=== PATIENT | male | born 1965 | race Caucasian/White ===

== ENCOUNTER 2024-09-11 14:06 | Inpatient (IN) | payer BC, SELFPAY ==
[2024-09-11] VITALS (8 sets, daily range): BP systolic 154–188; BP diastolic 89–108; BMI 26.5
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
[2024-09-11 10:56] LABS: % Basophils 0.9 % (0-2); % Eosinophils 2.9 % (0-6); % Immature Granulocytes 0.4 % (0-0.5); % Lymphocytes 14.6 % (20.5-51.1); % Monocytes 10.9 % (1.7-9.3); % Neutrophils 70.3 % (42.2-75.2); Absolute Basophils 0.1 10^3/uL (0-0.2); Absolute Eosinophils 0.2 10^3/uL (0-0.7); Absolute Lymphocytes 0.8 10^3/uL (1.2-3.4); Absolute Monocytes 0.6 10^3/uL (0.1-0.6); Absolute Neutrophils 3.9 10^3/uL (1.4-6.5); Hematocrit 29.7 % (39.0-52.0); Hemoglobin 10.7 g/dL (13.0-18.0); Mean Corpuscular Hgb 30.1 pg (27.0-31.0); Mean Corpuscular Volume 83.7 fL (80.0-94.0); Mean Platelet Volume 8.7 fL (7.4-10.4); Nucleated Red Blood Cells % 0 % (-); Platelet Count 199 10^3/uL (130-400); Red Blood Cell Count 3.55 10^6/uL (4.70-6.10); Red Cell Dist. Width 14.7 % (11.5-14.5); White Blood Cell Count 5.5 10^3/uL (4.8-10.8)
[2024-09-11 11:05] LABS: INR 1.09; PT 13.9 Sec (11.4-14.6)
[2024-09-11 11:27] LABS: ALT (SGPT) 17 U/L (0-50); AST (SGOT) 26 U/L (17-59); Albumin 3.8 g/dl (3.5-5.0); Alkaline Phosphatase 128 U/L (38-126); Blood Urea Nitrogen 34 mg/dl (9-20); Calcium 8.8 mg/dl (8.4-10.2); Carbon Dioxide 22 mmol/L (22-30); Chloride 95 mmol/L (98-107); Estimated Creatinine Clearance 22 ml/min; Glucose 90 mg/dl (70-99); Magnesium 1.8 mg/dl (1.6-2.3); Phosphorus 4.4 mg/dl (2.5-4.5); Potassium 4.2 mmol/L (3.5-5.1); Sodium 130 mmol/L (135-145); Total Bilirubin 0.7 mg/dl (0.2-1.3); Total Protein 7.1 g/dl (6.3-8.2); eGFR 17.14
[2024-09-11 11:30] LABS: Alcohol None Detected
[2024-09-11 12:42] LABS: Ammonia < 9 umol/L (9-30)
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
--- NOTE | 2024-09-11 13:20 | PHANOTE ---
Med Rec Note:
Pt states he takes 1 medications, but does not know the name of the medication. Dr Hayden shows Nifedipine ER 30mg filled 08/22/24. Pt unsure of medication, even when name is given. Home med list left unconfirmed.
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
--- NOTE | 2024-09-11 15:16 | PTCARENOTE ---
patient's BP noted to be high, house provider notified via TT
[2024-09-11 15:17] LABS: Urine Albumin 2+ (Neg - Trace); Urine Bilirubin Negative (Negative); Urine Character Clear (Clear); Urine Color Yellow; Urine Glucose Negative (Negative); Urine Ketone Negative (Negative); Urine Leukocyte Negative (Negative); Urine Nitrite Negative (Negative); Urine Occult Blood Negative (Negative); Urine Urobilinogen Negative (Neg - 1+)
[2024-09-11] MEDS: APRESOLINE 10 MG IV (15:21)
--- NOTE | 2024-09-11 15:25 | PTCARENOTE ---
please refer to MAR for PRN BP meds
[2024-09-11 15:32] LABS: Amphetamines Negative (Negative); Barbiturates Negative (Negative); Benzodiazepines Negative (Negative); Buprenorphine Negative (Negative); Cocaine Negative (Negative); Marijuana Negative (Negative); Methadone Negative (Negative); Methamphetamines Negative (Negative); Opiates Negative (Negative); Phencyclidine Negative (Negative); Tricyclic Antidepressants Negative (Negative)
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
[2024-09-11 15:58] LABS: Urine Squamous Cell 0-2 /LPF (Few); Urine White Cell 0-2 /HPF (0-5)
[2024-09-11] MEDS: PLAVIX 75 MG PO (17:00)
[2024-09-11] MEDS: LOW STRENGTH ASPIRIN 81 MG PO (17:00)
[2024-09-11] MEDS: TRANDATE 52 MG IV (17:52)
[2024-09-11] MEDS: PROCARDIA XL (EXTENDED RELEASE) 30 MG PO (19:43)
[2024-09-11] MEDS: HEPARIN 5000 UNITS SC (20:31)
[2024-09-11] MEDS: VITAMIN B1 100 MG PO (20:33)
[2024-09-12 02:46] LABS: Vitamin B12 449 pg/ml (239-931)
[2024-09-12 06:00] VITALS: BMI 25.8
[2024-09-12 06:54] LABS: Hematocrit 30.3 % (39.0-52.0); Hemoglobin 10.8 g/dL (13.0-18.0); Mean Corp Hgb Conc. 35.6 g/dL (33.0-37.0); Mean Corpuscular Hgb 30.2 pg (27.0-31.0); Mean Corpuscular Volume 84.6 fL (80.0-94.0); Platelet Count 285 10^3/uL (130-400); Red Blood Cell Count 3.58 10^6/uL (4.70-6.10); Red Cell Dist. Width 14.9 % (11.5-14.5); White Blood Cell Count 6.2 10^3/uL (4.8-10.8)
[2024-09-12 07:16] LABS: Blood Urea Nitrogen 38 mg/dl (9-20); Calcium 9.1 mg/dl (8.4-10.2); Carbon Dioxide 19 mmol/L (22-30); Chloride 96 mmol/L (98-107); Estimated Creatinine Clearance 21 ml/min; Glucose 88 mg/dl (70-99); Potassium 4.1 mmol/L (3.5-5.1); Sodium 130 mmol/L (135-145); eGFR 16.15
[2024-09-12 07:25] VITALS: BP 166/96
[2024-09-12] MEDS: PROCARDIA XL (EXTENDED RELEASE) 30 MG PO (08:29)
[2024-09-12] MEDS: LOW STRENGTH ASPIRIN 81 MG PO (08:29)
[2024-09-12] MEDS: HEPARIN SC ×2 (08:29→23:01)
[2024-09-12] MEDS: PLAVIX 75 MG PO (08:30)
[2024-09-12] MEDS: NEPHROCAP 1 CAPSULE PO (08:30)
[2024-09-12] MEDS: VITAMIN B1 100 MG PO ×2 (08:30→23:01)
--- NOTE | 2024-09-12 09:01 | PTCARENOTE ---
pt wakes to name. oriented to self knows its morning and that he is in a hospital does not know name. states he does not take medication he is holistic. still agreeable to take po meds not heparin injection able to ambulate to bathroom self. bed
alarm on for safety. CW HD cath in place.
--- NOTE | 2024-09-12 10:25 | W.PN.NEURO.1 ---
Today's Communication / Plan
-
Obtain records from patient's usual care center
From use of medications for memory stabilization
Consider as outpatient evaluation for possible normal pressure hydrocephalus dependent on test results
Provide Thiamine
Neuro Assessment/Plan
Assessment
Patient with prior history of dementia presumed to be secondary to metabolic disturbance presenting with lack of recall
CT of head demonstrates significant expansion of ventricles with radiology suggested severe white matter disease. Workup for metabolic disturbance producing symptomatology has been unremarkable
Plan
Obtain records from patient's usual care center
From use of medications for memory stabilization
Consider as outpatient evaluation for possible normal pressure hydrocephalus dependent on test results
Provide Thiamine
Will follow as needed.
Subjective/Objective
Subjective Data
Date of Service: September 12, 2024
Patient unable to account for hospitalization
Pt has had operation on heart 'to close hole'
Hx of stroke in 2022
Pt is on dialysis
Denies dysphagia, headache
Unknown hospital location, month and date
pronator drift (-)
Objective Data
Vital Signs
Temp Pulse Resp BP Pulse Ox
36.8 C 68 16 166/96 98
09/12/24 07:25 09/12/24 08:29 09/12/24 07:25 09/12/24 08:29 09/12/24 07:25
Lab Results
09/12/24 06:13
09/12/24 06:13
PT 13.9 Sec (11.4-14.6) 09/11/24 10:46
INR 1.09 09/11/24 10:46
Sodium 130 mmol/L (135-145) L 09/12/24 06:13
Potassium 4.1 mmol/L (3.5-5.1) 09/12/24 06:13
BUN 38 mg/dl (9-20) H 09/12/24 06:13
Glucose 88 mg/dl (70-99) 09/12/24 06:13
Calcium 9.1 mg/dl (8.4-10.2) 09/12/24 06:13
Phosphorus 4.4 mg/dl (2.5-4.5) 09/11/24 10:46
Vitamin B12 Cancelled 09/11/24 19:45
Ur Buprenorphine Negative (Negative) 09/11/24 14:54
Patient Allergies
bee venom protein (honey bee) Allergy (Verified 09/11/24 10:22)
Unknown
Review of Systems
-
Unable to obtain full review of systems at this time due to: Dementia
History Source: Patient
All other systems: Reviewed and negative
Physical Exam
-
General: No Apparent Distress and Appears Stated Age
Eyes: Round OU, Plato Conjunctivae and No Ptosis
HEENT: Anicteric and Moist Mucous Membranes
Neck: Full Range of Motion
Respiratory: No Dyspnea
Cardiac: No JVD
GI: Non-tender
Skin: Unremarkable
Extremities: No Clubbing, No Cyanosis and No Edema
Psych: Intact Judgement/Insight
Extended Neurological Exam
Mood & Affect: Other (Easily irritable)
Attention Span & Concentration: Awake, Alert, Interactive and No Difficulty with 2 Step Request
Memory: Reduced (Location, month, year) and Unable to Recall Personal History
Tremor: Hand Tremor Absent and Head Tremor Absent
Speech: Quality Unremarkable and Quantity Unremarkable
Cranial Nerve II: Left Eye: Pupillary Size Unremarkable and Visual Melissa Grossly Intact
Cranial Nerve II: Right Eye: Pupillary Size Unremarkable and Visual Melissa Grossly Intact
Cranial Nerves III, IV, : Extraocular Movement: Grossly Intact
Cranial Nerve VII: Facial Symmetry: Normal Facial Symmetry
Cranial Nerve VIII: Hearing: Unremarkable Hearing to Normal Conversational Volume
Cranial Nerve XI: Shoulder Shrug: Unremarkable
Muscle Bulk & Tone: Bulk Unremarkable and Tone Unremarkable
Pronator Drift: No Drift in Upper Extremities
Coordination: [id number] Testing Unremarkable
Data Reviewed
-
CT Head: Report Reviewed and Image Reviewed
Labs: Report Reviewed
Reviewed with: Physician and Patient
Old Records: Summarized
Past History
Past History
ED Past Medical History: CVA, Renal failure and Other (Dementia)
Medications
-
Medications:
Generic Name Dose Route Start Last Admin
Trade Name Freq PRN Reason Stop Dose Admin
Acetaminophen 650 mg 09/11/24 15:49
Acetaminophen 325 Mg Tablet PO 10/09/24 15:48
Q4HPRN PRN
mild pain/SHIRLEY/temp> 100.4F
Aspirin 81 mg 09/11/24 15:49 09/12/24 08:29
Aspirin 81 Mg Chewable Tablet PO 10/09/24 15:48 81 mg
DAILY SHARON Administration
Bisacodyl 10 mg 09/11/24 15:49
Bisacodyl 10 Mg Rectal Suppository RECTAL 10/09/24 15:48
[id number] PRN
constipation
Clopidogrel Bisulfate 75 mg 09/11/24 15:49 09/12/24 08:30
Clopidogrel 75 Mg Tablet PO 10/09/24 15:48 75 mg
DAILY SHARON Administration
Heparin Sodium 5,000 units 09/11/24 20:00 09/12/24 08:29
Heparin 5,000 Units/Ml 1 Ml Vial SC 10/09/24 19:59 Not Given
Q12 SHARON
Labetalol HCl 10 mg/ Sodium 52 mls @ 200 mls/hr 09/11/24 16:14 09/11/24 17:52
Chloride IV 10/09/24 16:13 52 mls
Q6HPRN PRN Administration
SBP>160,DBP>90 (HYPERTENSION)
Mannitol 12.5 grams 09/12/24 08:00
Mannitol 25% (12.5 Grams/50 Ml) Vial IV 09/12/24 23:59
HD-Q1HPRN PRN
sbp less then 100
Nifedipine 30 mg 09/12/24 08:00 09/12/24 08:29
Nifedipine 30 Mg Extended Release Tablet PO 10/10/24 07:59 30 mg
DAILY SHARON Administration
Polyethylene Glycol 17 grams 09/11/24 15:49
Polyethylene Glycol Powder 17 Grams Packet PO 10/09/24 15:48
DAILYPRN PRN
constipation
Senna/Docusate Sodium 1 tablet 09/11/24 15:49
Docusate W/Senna (Bailey-Colace) Tablet PO 10/09/24 15:48
BIDPRN PRN
constipation
Sodium Chloride 10 ml 09/12/24 08:00
Sodium Chloride (4 Meq/Ml) 30 Ml Vial *For Hemodialysis* IV 09/12/24 23:59
HD-Q1HPRN PRN
cramps
Sodium Chloride 0 flush 09/11/24 15:00
Sodium Chloride 0.9% (Flush) Syringe IV 10/09/24 14:59
PER PROTOCOL SHARON
Thiamine HCl 100 mg 09/11/24 20:00 09/12/24 08:30
Thiamine 100 Mg Tablet PO 10/09/24 19:59 100 mg
BID SHARON Administration
Vitamin B Complex/Vit C/Folic Acid 1 capsule 09/12/24 08:00 09/12/24 08:30
Renal Cap (Nephrocap) Capsule PO 10/10/24 07:59 1 capsule
DAILY SHARON Administration
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
--- NOTE | 2024-09-12 13:38 | EEG.RPT ---
Electroencephalogram Report
Recording
Date of EE09/12/24
Type of EEG: Routine
Length of EEG recordin minutes
Done with Video Recording: Yes
Patient Status: Inpatient
Recording Conditions: Awake and Drowsy
Hyperventilation Performed: No
Photic Stimulation Performed: Yes
Report
LESS THAN 1 HOUR EEG INTERPRETATION:
Unremarkable EEG for age
CLINICAL CORRELATION:
A normal EEG does not rule out a diagnosis of epilepsy. If clinical suspicion for seizure persists, a prolonged recording may be warranted.
Clinical correlation is advised.
METHODS:
A 21 channel digitized electroencephalogram (EEG) was performed using the 10/20 international system of electrode placement and one-lead of ECG recorded. The [facility] quantitative EEG system was utilized.
ELECTROENCEPHALOGRAPHER IMPRESSION(S):
Quality of study
Good
Background
There was an unremarkable anterior-posterior voltage gradient of alpha frequency.
With eye opening the background activity changed to a low voltage mixture of frequencies.
There were no significant asymmetries of background activity noted.
Sleep
Drowsiness present
Hyperventilation
No activation
Photic Stimulation
No activation
ECG
Normal sinus rhythm
[2024-09-12 15:25] VITALS: BP 183/97
[2024-09-12 16:09] VITALS: BP 162/92
[2024-09-12] MEDS: TRANDATE 52 MG IV (16:57)
--- NOTE | 2024-09-12 18:32 | W.PN.NEPH.HD ---
Assessment
-
pt seen during HD
vitals stable
UF as tolerates
CVC functions well
Trying to find his home unit , pt does not know the name
neuro w/u in progress for AMS
Progress Note - Hemodialysis
-
Date of Service: September 12, 2024
Duration: 30 minutes and 3 hours
Potassium Bath: 2
Calcium Bath: 2.5
Opti-Dialyzer: 160
Ultrafiltration: Other (2-2.5kg)
Blood Flow: 400
Dialysate Flow: 600
Heparin: no
EPO: 6000
[2024-09-12] MEDS: RETACRIT 6000 UNITS IV (19:44)
[2024-09-12] MEDS: HEPARIN 4000 UNITS INTRACATH (21:35)
[2024-09-12 23:08] VITALS: BP 151/88
[2024-09-13 06:00] VITALS: BMI 25.1
[2024-09-13 07:33] LABS: Blood Urea Nitrogen 19 mg/dl (9-20); Calcium 8.5 mg/dl (8.4-10.2); Carbon Dioxide 27 mmol/L (22-30); Chloride 96 mmol/L (98-107); Estimated Creatinine Clearance 30 ml/min; Glucose 83 mg/dl (70-99); Potassium 3.8 mmol/L (3.5-5.1); Sodium 134 mmol/L (135-145); eGFR 25.52
[2024-09-13 07:39] VITALS: BP 166/90
[2024-09-13 08:05] LABS: Hepatitis B Surface Antigen Negative (Negative)
[2024-09-13] MEDS: HEPARIN 5000 UNITS SC ×2 (08:07→20:33)
[2024-09-13] MEDS: PROCARDIA XL (EXTENDED RELEASE) 30 MG PO (08:09)
[2024-09-13] MEDS: NEPHROCAP 1 CAPSULE PO (08:09)
[2024-09-13] MEDS: VITAMIN B1 100 MG PO ×2 (08:09→20:34)
[2024-09-13] MEDS: PLAVIX 75 MG PO (08:09)
[2024-09-13] MEDS: LOW STRENGTH ASPIRIN 81 MG PO (08:09)
[2024-09-13 08:11] LABS: Hemoglobin 10.1 g/dL (13.0-18.0); Mean Corp Hgb Conc. 36.1 g/dL (33.0-37.0); Mean Corpuscular Hgb 31.3 pg (27.0-31.0); Mean Corpuscular Volume 86.7 fL (80.0-94.0); Mean Platelet Volume 9.2 fL (7.4-10.4); Platelet Count 214 10^3/uL (130-400); Red Blood Cell Count 3.23 10^6/uL (4.70-6.10); Red Cell Dist. Width 15.1 % (11.5-14.5); White Blood Cell Count 4.4 10^3/uL (4.8-10.8)
[2024-09-13 08:23] LABS: Hepatitis B Core Ab, Total Negative (Negative); Hepatitis B Surface Antibody Negative; Hepatitis C Antibody Negative (Negative)
--- NOTE | 2024-09-13 10:30 | PTCARENOTE ---
Talked to Everardo at Dialysis unit in [place] at [phone]. Per Everardo
When pt gets discharged call the Dialysis unit and let them know.
[2024-09-13 11:02] VITALS: BP 150/88
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
--- NOTE | 2024-09-13 11:42 | PN.CDI ---
CDI
- -
CDI:
Physician Documentation Request
Admit Date: 09/11/24 14:06
Dear Doctor Lebron,
Please review the following and provide your response in the progress notes.
Clinical Indicators:
- Patient admit with acute metabolic encephalopathy
- Documented systolic BP 170-180's
- IV Hydralazine
- IV Labetalol x 2
- 09/13 PN 'Essential Hypertension'
Selected Entries
09/11/24
15:12 09/11/24
16:52 09/12/24
15:25
Blood pressure 184/108 188/102 183/97
09/12/24
23:08 09/13/24
07:39 09/13/24
08:09
Blood pressure 151/88 166/90 166/90
Clarify which, if any of the following, is a more accurate diagnosis reflecting the type and acuity of the documented hypertension:
Essential primary hypertension only
Hypertensive Urgency - B/P is severely elevated (systolic > or = to 180 or diastolic > or = to 110) but there is no associated organ damage. Symptoms may include: headache, shortness of breath, nosebleeds, severe anxiety. Treatment usually consists
of addition to or adjusting of oral medications and does not generally necessitate hospitalization.
Hypertensive Emergency - B/P is severely elevated (systolic > or = to 180 or diastolic > or = to 110) but can occur at lower levels especially in patients who did not previously have high B/P. There is usually associated organ damage. Symptoms may
include: memory loss, LOC, CVA, RI, angina, renal failure, pulmonary edema. Generally requires more aggressive treatment and a hospitalization.
Hypertensive Crisis - an acute elevation in B/P that can lead to organ damage. Broad term that is further differentiated to include urgency or emergency based on presence of organ damage.
Other (please specify)
Use of terms such as suspected, likely, concern for, or probable (associated with a specific diagnosis that is being evaluated, monitored, or treated as if it exists) are acceptable and can be coded in the inpatient setting, when documented at the
time of discharge.
Thank you,
Jorge Luis Meyer RN
CDI Specialist
Please use your independent medical judgment in providing your response.
[2024-09-13 12:30] VITALS: BP 176/102; PULSE 82; O2SAT 98
[2024-09-13] MEDS: KEPPRA 500 MG PO ×2 (12:59→20:34)
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
--- NOTE | 2024-09-13 15:14 | W.PN.NEPH.PH ---
Addendum entered and electronically signed by Martine Cohn MD 09/13/24 18:10:
pt is generally is TTS schedule so next HD is on
Original Note:
Today's Communication / Plan
-
HD tomorrow
Assessment/Plan
-
Impression:
ESRD MWF
Confusion with apparent history of recent CVA
CT scan notable for chronic lacunar infarcts severe white matter leukoaraiosis/mild to moderate cerebellar and cerebral volume loss
Hyponatremia
Hypertension
Anemia
Plan:
HD tomorrow
BP mildly elevated, may need uptitration of CCB
cont other meds same -coreg, hydralazine
renal diet and FR
monitor cr pre HD, residual UOP
-
-
Date of Service: September 13, 2024
CC / HPI / ROS
-
Chief Complaint:
JESSICA vs ESRD-HD dependant
History of Present Illness:
tolerated HD yesterday
BP mildly high
no fever
Review of Systems:
no CP or sob
feels well
mild confusion
Labs
-
Labs:
WBC 4.4 10^3/uL (4.8-10.8) L 09/13/24 06:02
RBC 3.23 10^6/uL (4.70-6.10) L 09/13/24 06:02
Hgb 10.1 g/dL (13.0-18.0) L 09/13/24 06:02
Hct 28.0 % (39.0-52.0) L 09/13/24 06:02
Plt Count 214 10^3/uL (130-400) D 09/13/24 06:02
Sodium 134 mmol/L (135-145) L 09/13/24 06:02
Potassium 3.8 mmol/L (3.5-5.1) 09/13/24 06:02
Chloride 96 mmol/L (98-107) L 09/13/24 06:02
Carbon Dioxide 27 mmol/L (22-30) 09/13/24 06:02
BUN 19 mg/dl (9-20) 09/13/24 06:02
Creatinine 2.8 mg/dL (0.7-1.3) H 09/13/24 06:02
eGFR 25.52 09/13/24 06:02
Glucose 83 mg/dl (70-99) 09/13/24 06:02
Calcium 8.5 mg/dl (8.4-10.2) 09/13/24 06:02
Phosphorus 4.4 mg/dl (2.5-4.5) 09/11/24 10:46
Albumin 3.8 g/dl (3.5-5.0) 09/11/24 10:46
Physical Exam
-
Vital Signs:
Vital Signs
Temp Pulse Resp BP Pulse Ox
98.6 F 72 17 150/88 98
09/13/24 07:39 09/13/24 11:02 09/13/24 07:39 09/13/24 11:02 09/13/24 09:47
Cardiovascular:: Regular rate and rhythm
Respiratory:: Bilateral: CTA
Lung Excursion:: Normal
Abdomen:: Nontender and Soft
Extremity Edema:: None: Bilateral:
Rodriguez Catheter: No
[2024-09-13 15:33] VITALS: BP 142/84
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
[2024-09-13] MEDS: APRESOLINE 100 MG PO ×2 (16:26→22:22)
[2024-09-13] MEDS: COREG 12.5 MG PO (20:32)
[2024-09-13 22:54] VITALS: BP 146/85
[2024-09-14 05:27] VITALS: BMI 25.6
[2024-09-14 07:31] VITALS: BP 146/78
[2024-09-14] MEDS: VITAMIN B1 100 MG PO ×2 (08:08→20:40)
[2024-09-14] MEDS: NEPHROCAP 1 CAPSULE PO (08:08)
[2024-09-14] MEDS: LOW STRENGTH ASPIRIN 81 MG PO (08:08)
[2024-09-14] MEDS: PLAVIX 75 MG PO (08:08)
[2024-09-14] MEDS: LIPITOR 40 MG PO (08:08)
[2024-09-14] MEDS: KEPPRA 500 MG PO ×2 (08:08→20:40)
[2024-09-14] MEDS: PROCARDIA XL (EXTENDED RELEASE) 30 MG PO (08:09)
[2024-09-14] MEDS: APRESOLINE 100 MG PO ×3 (08:09→22:55)
[2024-09-14] MEDS: COREG 12.5 MG PO ×2 (08:09→20:41)
[2024-09-14] MEDS: HEPARIN 5000 UNITS SC ×2 (08:09→20:41)
[2024-09-14 08:16] LABS: Hematocrit 28.3 % (39.0-52.0); Hemoglobin 10.1 g/dL (13.0-18.0); Mean Corp Hgb Conc. 35.7 g/dL (33.0-37.0); Mean Corpuscular Hgb 31.2 pg (27.0-31.0); Mean Corpuscular Volume 87.3 fL (80.0-94.0); Mean Platelet Volume 9.2 fL (7.4-10.4); Platelet Count 201 10^3/uL (130-400); Red Blood Cell Count 3.24 10^6/uL (4.70-6.10); Red Cell Dist. Width 15.1 % (11.5-14.5); White Blood Cell Count 5.4 10^3/uL (4.8-10.8)
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
[2024-09-14 08:51] LABS: Blood Urea Nitrogen 25 mg/dl (9-20); Calcium 8.5 mg/dl (8.4-10.2); Carbon Dioxide 24 mmol/L (22-30); Chloride 96 mmol/L (98-107); Estimated Creatinine Clearance 24 ml/min; Glucose 83 mg/dl (70-99); Potassium 4.3 mmol/L (3.5-5.1); Sodium 131 mmol/L (135-145); eGFR 19.52
[2024-09-14 11:04] VITALS: BP 116/69; PULSE 69; O2SAT 98
--- NOTE | 2024-09-14 12:01 | CM ---
Addendum entered by Elaine Dwyer RN 09/14/24 12:24:
Call placed to [facility] in [facility]. Spoke with Juliette, per Juliette they provide [employer] type fpc and food, no housing. Voice message left for [facility]. Awaiting call back.
Original Note:
Reviewed the chart notes and spoke with the patient's son Dejon via telephone. CM inquired about where the patient's belongs were. Per son, some of the belongs from the home he was sharing are in the car and some are still at the house. CM asked
where the patient was going to live after being kicked out of the house he shared. Patient's son replied 'It's up to him (patient) to decide'. Patient's son stated he was about to go into his doctors office. CM text call back information to son
to resume conversation when he could. CM spoke with the patient and asked if he might be willing to go to a SNF/rehab at discharge in [place]. Patient was adamant that he would not go. Attempted to discuss planning for discharge with the patient.
Patient said 'I will get my car and I'm going to buy a house'. When asked how he was planning on getting his car, he stated 'I'll walk'. CM continues to be available to patient/family and is monitoring medical plan for needs at discharge.
Plan: Discharge plans will depend on the patient and his son's participation in finding a place for the patient and providing transportation. Patient receives HD at a [facility] in [facility].
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
[2024-09-14 15:26] VITALS: BP 159/95
[2024-09-14 23:39] VITALS: BP 158/85
[2024-09-15 06:00] VITALS: BMI 26.1
[2024-09-15 06:58] LABS: Hematocrit 28.6 % (39.0-52.0); Hemoglobin 10.1 g/dL (13.0-18.0); Mean Corp Hgb Conc. 35.3 g/dL (33.0-37.0); Mean Corpuscular Hgb 31.7 pg (27.0-31.0); Mean Corpuscular Volume 89.7 fL (80.0-94.0); Platelet Count 216 10^3/uL (130-400); Red Blood Cell Count 3.19 10^6/uL (4.70-6.10); Red Cell Dist. Width 15.3 % (11.5-14.5); White Blood Cell Count 6.2 10^3/uL (4.8-10.8)
[2024-09-15 07:42] LABS: Blood Urea Nitrogen 32 mg/dl (9-20); Calcium 8.6 mg/dl (8.4-10.2); Carbon Dioxide 23 mmol/L (22-30); Chloride 97 mmol/L (98-107); Estimated Creatinine Clearance 22 ml/min; Glucose 95 mg/dl (70-99); Potassium 4.2 mmol/L (3.5-5.1); Sodium 133 mmol/L (135-145); eGFR 17.14
[2024-09-15] MEDS: PLAVIX 75 MG PO (07:47)
[2024-09-15] MEDS: NEPHROCAP 1 CAPSULE PO (07:47)
[2024-09-15] MEDS: APRESOLINE 100 MG PO ×2 (07:47→17:49)
[2024-09-15] MEDS: VITAMIN B1 100 MG PO ×2 (07:47→20:14)
[2024-09-15] MEDS: LOW STRENGTH ASPIRIN 81 MG PO (07:48)
[2024-09-15] MEDS: HEPARIN 5000 UNITS SC ×2 (07:48→20:12)
[2024-09-15] MEDS: KEPPRA 500 MG PO ×2 (07:48→20:14)
[2024-09-15] MEDS: PROCARDIA XL (EXTENDED RELEASE) 30 MG PO (07:48)
[2024-09-15] MEDS: LIPITOR 40 MG PO (07:48)
[2024-09-15] MEDS: COREG 12.5 MG PO ×2 (07:49→20:14)
[2024-09-15 07:50] VITALS: BP 174/90
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
--- NOTE | 2024-09-15 13:08 | W.PN.NEPH.HD ---
Assessment
-
Patient seen on dialysis
Systolic blood pressure stable at current
Patient irritable
Progress Note - Hemodialysis
-
Date of Service: September 15, 2024
Duration: 30 minutes and 3 hours
Potassium Bath: 2
Calcium Bath: 2.5
Ultrafiltration: Other (3kg as hemodynamically tolerated)
Blood Flow: 400
Dialysate Flow: 600
Heparin: none
EPO: 6K
[2024-09-15] MEDS: RETACRIT 6000 UNITS IV (14:42)
[2024-09-15] MEDS: HEPARIN 3900 UNITS INTRACATH (15:54)
[2024-09-15 16:00] VITALS: BP 113/86
[2024-09-15] MEDS: APRESOLINE PO (22:16)
[2024-09-15 22:23] VITALS: BP 102/59
[2024-09-15 22:45] VITALS: BP 102/59
--- NOTE | 2024-09-15 22:51 | PTCARENOTE ---
Pt admitted with HTN, on Hydralazine 100mg PO TID. For 22:00 dose, BP 102/59. Notified EC TEACHER, parameters added to Hydralazine order to hold for systolic < 105. Dose held. Pt with no complaints, resting comfortably in bed.
[2024-09-16 00:31] VITALS: BP 110/60
[2024-09-16 05:35] VITALS: BMI 24.9
[2024-09-16 08:00] VITALS: BP 136/82
[2024-09-16] MEDS: LOW STRENGTH ASPIRIN 81 MG PO (08:50)
[2024-09-16] MEDS: KEPPRA 500 MG PO ×2 (08:50→20:03)
[2024-09-16] MEDS: LIPITOR 40 MG PO (08:50)
[2024-09-16] MEDS: COREG 12.5 MG PO ×2 (08:50→20:04)
[2024-09-16] MEDS: VITAMIN B1 100 MG PO ×2 (08:50→20:04)
[2024-09-16] MEDS: APRESOLINE 100 MG PO ×3 (08:50→22:29)
[2024-09-16] MEDS: NEPHROCAP 1 CAPSULE PO (08:50)
[2024-09-16] MEDS: PROCARDIA XL (EXTENDED RELEASE) 30 MG PO (08:51)
[2024-09-16] MEDS: PLAVIX 75 MG PO (08:51)
[2024-09-16] MEDS: HEPARIN 5000 UNITS SC ×2 (08:51→20:03)
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
--- NOTE | 2024-09-16 15:24 | W.PN.HOSP.TC ---
Today's Communication/Plan
-
dc planning
HD tomorrow
Assessment / Plan
Assessment / Plan
Assessment:
Presumed acute metabolic encephalopathy, likely underlying dementia (unknown subtype)
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
- CT head: MANY CHRONIC LACUNAR INFARCTS in the deep langley and white matter bilaterally. 8.6 mm chronic infarct in the cherie. SEVERE WHITE MATTER LEUKOARAIOSIS. Severe intracranial calcific atherosclerotic disease. Moderate dilatation of the
ventricular system and multiple asymmetrically dilated cerebral sulci suspicious for normal pressure communicating hydrocephalus. Ex vacuo dilatation secondary to cerebral volume loss is an alternative diagnostic possibility.
- EEG negative. other metabolic workup negative
- cannot have MRI due to PFO closure device
- from recent hospitalizations in July per records. Patient presented 07/28 to [facility] for change in mental status, found to have L basal ganglia/left centrum semi-ovale region acute hemorrhage. FABIO revealed PFO and patient underwent
closure. He was discharged on ASA/Plavix x 6 months then ASA alone per Cardiology and BP Control. He was placed on Keppra for seizure prophylaxis. He was also initiated on HD via tunnelled HD cath and planned for outpatient HD in [facility] on
a TTS schedule.
- continue ASA/Plavix/Statin
- continue Keppra for seizure ppx
- appreciate psych eval; patient deemed to have capacity, but felt to have limited insight/judgement.
Anemia likely from chronic kidney disease
- hemoglobin 10.1
- no active bleeding
- continue to monitor
- on Aranesp outpatient
End-stage renal disease on dialysis
Chronic hyponatremia
- Nephrology following
- planned for outpatient HD in [facility] on a TTS schedule.
Essential Hypertension with Hypertensive urgency
- continue Nifedipine/Coreg
Hx of ASD s/p closure device placement
- continue ASA/Plavix/Statin
DVT ppx: SC Heparin
Code: Full
Dispo: Medically stable for DC. Has [place] Medicaid insurance. d/w son Dejon (lives in [place]). Apparently patient still lives at address with belongings there (not evicted per patient). Also per CM, patients car is impounded, not drivable. Phone now
retrieved. CM working on further contacts for safe dispo.
Anticipated Discharge: 24 - 48 hours
Subjective/Interval History
-
Date of Service: September 16, 2024
no acute issues
Objective Data
-
Vital Signs:
Vital Signs
Temp Pulse Resp BP Pulse Ox
97.9 F 60 16 136/82 99
09/16/24 08:00 09/16/24 08:51 09/16/24 08:00 09/16/24 08:51 09/16/24 08:00
I&O
09/15/24 09/16/24 09/17/24
06:59 06:59 06:59
Intake Total 960 / 960 940 / 940
Output Total 175 / 175
Balance 960 / 960 765 / 765
Physical Exam
-
General: No Apparent Distress
HEENT: Normocephalic and Atraumatic
Respiratory: Negative Wheezes
Cardiac: Regular Rhythm
GI: Soft
Neuro: AO x 3
Psych: Calm
Data Reviewed
-
Total Time Spent with Patient (in minutes): 41
Labs: Labs Reviewed by me
--- NOTE | 2024-09-16 15:50 | W.PN.NEPH.PH ---
Today's Communication / Plan
-
HD tomorrow
Assessment/Plan
-
Impression:
ESRD MWF
Confusion with apparent history of recent CVA
CT scan notable for chronic lacunar infarcts severe white matter leukoaraiosis/mild to moderate cerebellar and cerebral volume loss
Hyponatremia
Hypertension
Anemia
Plan:
HD tomorrow,
cont other meds same -coreg, hydralazine
renal diet and FR
Patient has [place] Medicaid and due to numerous social issues placement will be exceedingly difficult to palce him
-
-
Date of Service: September 16, 2024
CC / HPI / ROS
-
Chief Complaint:
JESSICA vs ESRD-HD dependant
History of Present Illness:
tolerated HD 09/15
BP stable
no fever
Review of Systems:
no CP or sob
feels well
mild confusion
Labs
-
Labs:
WBC 6.2 10^3/uL (4.8-10.8) 09/15/24 04:47
RBC 3.19 10^6/uL (4.70-6.10) L 09/15/24 04:47
Hgb 10.1 g/dL (13.0-18.0) L 09/15/24 04:47
Hct 28.6 % (39.0-52.0) L 09/15/24 04:47
Plt Count 216 10^3/uL (130-400) 09/15/24 04:47
Sodium 133 mmol/L (135-145) L 09/15/24 04:47
Potassium 4.2 mmol/L (3.5-5.1) 09/15/24 04:47
Chloride 97 mmol/L (98-107) L 09/15/24 04:47
Carbon Dioxide 23 mmol/L (22-30) 09/15/24 04:47
BUN 32 mg/dl (9-20) H 09/15/24 04:47
Creatinine 3.9 mg/dL (0.7-1.3) H 09/15/24 04:47
eGFR 17.14 09/15/24 04:47
Glucose 95 mg/dl (70-99) 09/15/24 04:47
Calcium 8.6 mg/dl (8.4-10.2) 09/15/24 04:47
Phosphorus 4.4 mg/dl (2.5-4.5) 09/11/24 10:46
Albumin 3.8 g/dl (3.5-5.0) 09/11/24 10:46
Physical Exam
-
Vital Signs:
Vital Signs
Temp Pulse Resp BP Pulse Ox
97.9 F 60 16 136/82 99
09/16/24 08:00 09/16/24 08:51 09/16/24 08:00 09/16/24 08:51 09/16/24 08:00
Cardiovascular:: Regular rate and rhythm
Respiratory:: Bilateral: CTA
Lung Excursion:: Normal
Abdomen:: Nontender and Soft
Extremity Edema:: None: Bilateral:
Rodriguez Catheter: No
[2024-09-16 16:00] VITALS: BP 141/83
[2024-09-17 06:00] VITALS: BMI 25.2
[2024-09-17 08:00] VITALS: BP 174/94
[2024-09-17] MEDS: NEPHROCAP 1 CAPSULE PO (08:26)
[2024-09-17] MEDS: KEPPRA 500 MG PO ×2 (08:26→20:06)
[2024-09-17] MEDS: COREG 12.5 MG PO ×2 (08:26→20:06)
[2024-09-17] MEDS: LIPITOR 40 MG PO (08:26)
[2024-09-17] MEDS: VITAMIN B1 100 MG PO ×2 (08:26→20:06)
[2024-09-17] MEDS: APRESOLINE 100 MG PO ×3 (08:29→22:18)
[2024-09-17] MEDS: PROCARDIA XL (EXTENDED RELEASE) 30 MG PO (08:29)
[2024-09-17] MEDS: PLAVIX 75 MG PO (08:29)
[2024-09-17] MEDS: LOW STRENGTH ASPIRIN 81 MG PO (08:30)
[2024-09-17] MEDS: HEPARIN 5000 UNITS SC ×2 (08:30→20:05)
--- NOTE | 2024-09-17 10:28 | W.PN.HOSP.TC ---
Today's Communication/Plan
-
HD today
Ethics consult for safe dispo
Assessment / Plan
Assessment / Plan
Assessment:
Presumed acute metabolic encephalopathy, likely underlying dementia (unknown subtype)
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
- CT head: MANY CHRONIC LACUNAR INFARCTS in the deep langley and white matter bilaterally. 8.6 mm chronic infarct in the cherie. SEVERE WHITE MATTER LEUKOARAIOSIS. Severe intracranial calcific atherosclerotic disease. Moderate dilatation of the
ventricular system and multiple asymmetrically dilated cerebral sulci suspicious for normal pressure communicating hydrocephalus. Ex vacuo dilatation secondary to cerebral volume loss is an alternative diagnostic possibility.
- EEG negative. other metabolic workup negative
- cannot have MRI due to PFO closure device
- from recent hospitalizations in July per records. Patient presented 07/28 to [facility] for change in mental status, found to have L basal ganglia/left centrum semi-ovale region acute hemorrhage. FABIO revealed PFO and patient underwent
closure. He was discharged on ASA/Plavix x 6 months then ASA alone per Cardiology and BP Control. He was placed on Keppra for seizure prophylaxis. He was also initiated on HD via tunnelled HD cath and planned for outpatient HD in [facility] on
a TTS schedule.
- continue ASA/Plavix/Statin
- continue Keppra for seizure ppx
- appreciate psych eval; patient deemed to have capacity, but felt to have limited insight/judgement.
Anemia likely from chronic kidney disease
- hemoglobin 10.1
- no active bleeding
- continue to monitor
- on Aranesp outpatient
End-stage renal disease on dialysis
Chronic hyponatremia
- Nephrology following
- planned for outpatient HD in [facility] on a TTS schedule.
Essential Hypertension with Hypertensive urgency
- continue Nifedipine/Coreg
Hx of ASD s/p closure device placement
- continue ASA/Plavix/Statin
DVT ppx: SC Heparin
Code: Full
Dispo: Medically stable for DC. Has [place] Medicaid insurance. d/w son Dejon (lives in [place]). Apparently patient still lives at address with belongings there (not evicted per patient). Also per CM, patients car is impounded, not drivable. Phone now
retrieved. CM working on further contacts for safe dispo (Sons, friends not willing to intervene). Patient with capacity per Psych.
Anticipated Discharge: > 48 hours
Subjective/Interval History
-
Date of Service: September 17, 2024
no overnight events
HD today
Objective Data
-
Labs:
Laboratory Results
09/17/24
06:00
Sodium Pending
Potassium Pending
Chloride Pending
Carbon Dioxide Pending
BUN Pending
Creatinine Pending
Glucose Pending
Calcium Pending
Vital Signs:
Vital Signs
Temp Pulse Resp BP Pulse Ox
97.4 F 63 18 174/94 98
09/17/24 08:00 09/17/24 08:29 09/17/24 08:00 09/17/24 08:29 09/17/24 08:00
I&O
09/16/24 09/17/24 09/18/24
06:59 06:59 06:59
Intake Total 940 / 940 1140 / 1140
Output Total 175 / 175
Balance 765 / 765 1140 / 1140
Physical Exam
-
General: No Apparent Distress
HEENT: Normocephalic and Atraumatic
Respiratory: Negative Wheezes
Cardiac: Regular Rhythm and S1/S2
GI: Soft
Musculoskeletal: No Edema
Neuro: Awake
Psych: Calm and Apparent Dementia
Data Reviewed
-
Total Time Spent with Patient (in minutes): 41
Labs: Labs Reviewed by me
[2024-09-17 11:16] LABS: Blood Urea Nitrogen 26 mg/dl (9-20); Calcium 9.2 mg/dl (8.4-10.2); Carbon Dioxide 28 mmol/L (22-30); Chloride 96 mmol/L (98-107); Estimated Creatinine Clearance 20 ml/min; Glucose 124 mg/dl (70-99); Sodium 135 mmol/L (135-145); eGFR 15.69
[2024-09-17] MEDS: HEPARIN 500 UNITS IV ×2 (14:20)
[2024-09-17] MEDS: RETACRIT 2000 UNITS IV (14:20)
--- NOTE | 2024-09-17 14:43 | W.PN.NEPH.HD ---
Assessment
-
pt seen during HD
vitals stable
CVC functions well
monitor BPs
Progress Note - Hemodialysis
-
Date of Service: September 17, 2024
Duration: 30 minutes and 3 hours
Potassium Bath: 3
Calcium Bath: 2.5
Opti-Dialyzer: 160
Ultrafiltration: Other (1-1.5kg)
Blood Flow: 400
Dialysate Flow: 600
Heparin: yesx2
EPO: 2000
[2024-09-17 15:55] VITALS: BP 130/70
[2024-09-17] MEDS: HEPARIN 4000 UNITS INTRACATH (16:01)
[2024-09-17 23:15] VITALS: BP 126/70
[2024-09-18 06:00] VITALS: BMI 24.8
[2024-09-18 07:44] VITALS: BP 161/86
[2024-09-18] MEDS: NEPHROCAP 1 CAPSULE PO (08:17)
[2024-09-18] MEDS: LIPITOR 40 MG PO (08:17)
[2024-09-18] MEDS: PROCARDIA XL (EXTENDED RELEASE) 30 MG PO (08:17)
[2024-09-18] MEDS: APRESOLINE 100 MG PO ×3 (08:17→21:04)
[2024-09-18] MEDS: LOW STRENGTH ASPIRIN 81 MG PO (08:18)
[2024-09-18] MEDS: KEPPRA 500 MG PO ×2 (08:18→21:04)
[2024-09-18] MEDS: HEPARIN 5000 UNITS SC ×2 (08:18→21:04)
[2024-09-18] MEDS: VITAMIN B1 100 MG PO ×2 (08:18→21:05)
[2024-09-18] MEDS: PLAVIX 75 MG PO (08:18)
[2024-09-18] MEDS: COREG 12.5 MG PO ×2 (08:18→21:04)
--- NOTE | 2024-09-18 12:32 | W.PN.NEPH.PH ---
Today's Communication / Plan
-
HD TTS
Assessment/Plan
-
Impression:
ESRD MWF
Confusion with apparent history of recent CVA
CT scan notable for chronic lacunar infarcts severe white matter leukoaraiosis/mild to moderate cerebellar and cerebral volume loss
Hyponatremia
Hypertension
Anemia
Plan:
HD TTS schedule
monitor BP -coreg, hydralazine
renal diet and FR
Patient has [place] Medicaid and due to numerous social issues placement will be exceedingly difficult to palce him
-
-
Date of Service: September 18, 2024
CC / HPI / ROS
-
Chief Complaint:
JESSICA vs ESRD-HD dependant
History of Present Illness:
tolerated HD 09/17
BP increasing trend
no fever
Review of Systems:
no CP or sob
feels well
Labs
-
Labs:
WBC 6.2 10^3/uL (4.8-10.8) 09/15/24 04:47
RBC 3.19 10^6/uL (4.70-6.10) L 09/15/24 04:47
Hgb 10.1 g/dL (13.0-18.0) L 09/15/24 04:47
Hct 28.6 % (39.0-52.0) L 09/15/24 04:47
Plt Count 216 10^3/uL (130-400) 09/15/24 04:47
Sodium 135 mmol/L (135-145) 09/17/24 10:38
Potassium 4.0 mmol/L (3.5-5.1) 09/17/24 10:38
Chloride 96 mmol/L (98-107) L 09/17/24 10:38
Carbon Dioxide 28 mmol/L (22-30) 09/17/24 10:38
BUN 26 mg/dl (9-20) H 09/17/24 10:38
Creatinine 4.2 mg/dL (0.7-1.3) H* 09/17/24 10:38
eGFR 15.69 09/17/24 10:38
Glucose 124 mg/dl (70-99) H 09/17/24 10:38
Calcium 9.2 mg/dl (8.4-10.2) 09/17/24 10:38
Phosphorus 4.4 mg/dl (2.5-4.5) 09/11/24 10:46
Albumin 3.8 g/dl (3.5-5.0) 09/11/24 10:46
Physical Exam
-
Vital Signs:
Vital Signs
Temp Pulse Resp BP Pulse Ox
97.4 F 59 16 161/86 99
09/18/24 07:44 09/18/24 08:18 09/18/24 07:44 09/18/24 08:18 09/18/24 08:08
Cardiovascular:: Regular rate and rhythm
Respiratory:: Bilateral: CTA
Lung Excursion:: Normal
Abdomen:: Nontender and Soft
Extremity Edema:: None: Bilateral:
Rodriguez Catheter: No
--- NOTE | 2024-09-18 12:46 | CM ---
Reviewed the chart notes and had multiple conversations with the patient. Reviewed possible discharge option. Most practical would be discharge to hotel close to his HD site in [facility]. Patient reports having [employer] [facility]. [facility]
[employer] to [facility] in [facility] which is approximately 15 miles from the HD site. Patient will consider this option. Patient would like to go to [place] to be with his 'girlfriend'. Patient requested CM provide transportation. Explained that
CM would not be able to provide this service, but would provide transportation back to his home state of [place] to continue dialysis at his facility.
Plan: Discharge back to [place] so patient could continue with HD in [facility]. Chair time is @ 4:10pm.
--- NOTE | 2024-09-18 13:20 | W.PN.HOSP.TC ---
Today's Communication/Plan
-
ongoing dispo efforts
next HD Thursday
Assessment / Plan
Assessment / Plan
Assessment:
Presumed acute metabolic encephalopathy, likely underlying dementia (unknown subtype)
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
- CT head: MANY CHRONIC LACUNAR INFARCTS in the deep langley and white matter bilaterally. 8.6 mm chronic infarct in the cherie. SEVERE WHITE MATTER LEUKOARAIOSIS. Severe intracranial calcific atherosclerotic disease. Moderate dilatation of the
ventricular system and multiple asymmetrically dilated cerebral sulci suspicious for normal pressure communicating hydrocephalus. Ex vacuo dilatation secondary to cerebral volume loss is an alternative diagnostic possibility.
- EEG negative. other metabolic workup negative
- cannot have MRI due to PFO closure device
- from recent hospitalizations in July per records. Patient presented 07/[address] [facility] for change in mental status, found to have L basal ganglia/left centrum semi-ovale region acute hemorrhage. FABIO revealed PFO and patient underwent
closure. He was discharged on ASA/Plavix x 6 months then ASA alone per Cardiology and BP Control. He was placed on Keppra for seizure prophylaxis. He was also initiated on HD via tunnelled HD cath and planned for outpatient HD in [facility] on
a TTS schedule.
- continue ASA/Plavix/Statin
- continue Keppra for seizure ppx
- appreciate psych eval; patient deemed to have capacity, but felt to have limited insight/judgement.
Anemia likely from chronic kidney disease
- hemoglobin 10.1
- no active bleeding
- continue to monitor
- on Aranesp outpatient
End-stage renal disease on dialysis
Chronic hyponatremia
- Nephrology following
- planned for outpatient HD in [facility] on a TTS schedule.
Essential Hypertension with Hypertensive urgency
- continue Nifedipine/Coreg
Hx of ASD s/p closure device placement
- continue ASA/Plavix/Statin
DVT ppx: SC Heparin
Code: Full
Dispo: Medically stable for DC. Has [place] Medicaid insurance. d/w son Dejon (lives in [place]). Apparently patient still lives at address with belongings there (not evicted per patient). Also per CM, patients car is impounded, not drivable. Phone now
retrieved. CM working on further contacts for safe dispo (Sons, friends not willing to intervene). Patient with capacity per Psych.
Anticipated Discharge: > 48 hours
Subjective/Interval History
-
Date of Service: September 18, 2024
no overnight events
Objective Data
-
Vital Signs:
Vital Signs
Temp Pulse Resp BP Pulse Ox
97.4 F 59 16 161/86 99
09/18/24 07:44 09/18/24 08:18 09/18/24 07:44 09/18/24 08:18 09/18/24 08:08
I&O
09/17/24 09/18/24 09/19/24
06:59 06:59 06:59
Intake Total 1140 / 1140 540 / 540
Balance 1140 / 1140 540 / 540
Physical Exam
-
General: No Apparent Distress
HEENT: Normocephalic and Atraumatic
Respiratory: Negative Wheezes
Cardiac: Regular Rhythm and S1/S2
GI: Soft and Nontender
Musculoskeletal: No Edema
Neuro: Awake and Alert
Psych: Calm and Apparent Dementia
Data Reviewed
-
Total Time Spent with Patient (in minutes): 41
Labs: Labs Reviewed by me
[2024-09-18 15:28] VITALS: BP 111/70
[2024-09-18 23:22] VITALS: BP 131/67
[2024-09-19 06:00] VITALS: BMI 24.8
--- NOTE | 2024-09-19 07:56 | W.PN.HOSP.TC ---
Today's Communication/Plan
-
dispo planning - will discuss case with CM
Assessment / Plan
Assessment / Plan
Mr. Shamar Navarrete is a 58 yo man with history ESRD on HD, HTN, ASD s/p closure device, CVA one week prior to admission presents to the ER with confusion after being found in a ditch in car by police.
Presumed acute metabolic encephalopathy, likely underlying dementia (unknown subtype)
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
- CT head: MANY CHRONIC LACUNAR INFARCTS in the deep langley and white matter bilaterally. 8.6 mm chronic infarct in the cherie. SEVERE WHITE MATTER LEUKOARAIOSIS. Severe intracranial calcific atherosclerotic disease. Moderate dilatation of the
ventricular system and multiple asymmetrically dilated cerebral sulci suspicious for normal pressure communicating hydrocephalus. Ex vacuo dilatation secondary to cerebral volume loss is an alternative diagnostic possibility.
- EEG negative. other metabolic workup negative
- cannot have MRI due to PFO closure device
- from recent hospitalizations in July per records. Patient presented 07/28 to [facility] for change in mental status, found to have L basal ganglia/left centrum semi-ovale region acute hemorrhage. FABIO revealed PFO and patient underwent
closure. He was discharged on ASA/Plavix x 6 months then ASA alone per Cardiology and BP Control. He was placed on Keppra for seizure prophylaxis. He was also initiated on HD via tunnelled HD cath and planned for outpatient HD in [facility] on
a TTS schedule.
- continue ASA/Plavix/Statin
- continue Keppra for seizure ppx
- appreciate psych eval; patient deemed to have capacity, but felt to have limited insight/judgement.
Anemia likely from chronic kidney disease
- hemoglobin 10.1
- no active bleeding
- continue to monitor
- on Aranesp outpatient
End-stage renal disease on dialysis
Chronic hyponatremia
- Nephrology following
- planned for outpatient HD in [facility] on a TTS schedule.
Essential Hypertension with Hypertensive urgency
- continue Nifedipine/Coreg
Hx of ASD s/p closure device placement
- continue ASA/Plavix/Statin
DVT ppx: SC Heparin
Code: Full
Dispo: Medically stable for DC. Has [place] Medicaid insurance. d/w son Dejon (lives in [place]). Apparently patient still lives at address with belongings there (not evicted per patient). Also per CM, patients car is impounded, not drivable. Phone now
retrieved. CM working on further contacts for safe dispo (Sons, friends not willing to intervene). Patient with capacity per Psych.
Anticipated Discharge: Within 24 hours
Subjective/Interval History
-
Date of Service: September 19, 2024
hungry, wants to eat
no new complaints
Objective Data
-
Vital Signs:
Vital Signs
Temp Pulse Resp BP Pulse Ox
97.8 F 66 19 131/67 98
09/18/24 23:22 09/18/24 23:22 09/18/24 23:22 09/18/24 23:22 09/18/24 23:22
I&O
09/18/24 09/19/24 09/20/24
06:59 06:59 06:59
Intake Total 540 / 540 1680 / 1680
Balance 540 / 540 1680 / 1680
Review of Systems
-
History Source: Patient
All other systems: Reviewed and negative
Physical Exam
-
General: No Apparent Distress
HEENT: Normocephalic and Atraumatic
Respiratory: Negative Wheezes
Cardiac: Regular Rhythm and S1/S2
GI: Soft and Nontender
Musculoskeletal: No Edema
Neuro: Awake and Alert
Psych: Calm and Apparent Dementia
Data Reviewed
-
Diagnostic Radiology: Report Reviewed by me
Labs: Labs Reviewed by me
[2024-09-19 08:03] VITALS: BP 169/89
[2024-09-19] MEDS: VITAMIN B1 100 MG PO ×2 (08:38→20:46)
[2024-09-19] MEDS: PLAVIX 75 MG PO (08:38)
[2024-09-19] MEDS: LOW STRENGTH ASPIRIN 81 MG PO (08:38)
[2024-09-19] MEDS: NEPHROCAP 1 CAPSULE PO (08:38)
[2024-09-19] MEDS: KEPPRA 500 MG PO ×2 (08:38→20:46)
[2024-09-19] MEDS: HEPARIN 5000 UNITS SC ×2 (08:39→20:46)
[2024-09-19] MEDS: APRESOLINE 100 MG PO ×3 (08:39→21:43)
[2024-09-19] MEDS: LIPITOR 40 MG PO (08:39)
[2024-09-19] MEDS: COREG 12.5 MG PO ×2 (08:39→20:46)
[2024-09-19] MEDS: PROCARDIA XL (EXTENDED RELEASE) 30 MG PO (08:39)
--- NOTE | 2024-09-19 10:47 | CM ---
Addendum entered by Elaine Dwyer RN 09/19/24 15:00:
CM updated Devi with Caleb Munoz ([phone]) regarding patient now having his phone and list of area motels/hotels in [place] provided. .
Addendum entered by Elaine Dwyer RN 09/19/24 13:37:
CM printed a list of area motels/hotels in [facility]. CM discussed for the patient to review the motels and select one in which he can discharge to.
Original Note:
Reviewed the chart notes and spoke with the patient and a gentleman named Rudy. Rudy's father is a parishioner at the patient's [employer] and was asked to reach out to the patient to see what the [employer] may be able to assist with. CM information
provided to Rudy to forward to his father and the office coordinator. CM continues to be available to patient/family and is monitoring medical plan for needs at discharge.
Plan: Discharge back to [place] and continues with his HD in [facility].
--- NOTE | 2024-09-19 10:49 | W.PN.NEPH.PH ---
Today's Communication / Plan
-
HD tomorrow
Assessment/Plan
-
Impression:
ESRD MWF
Confusion with apparent history of recent CVA
CT scan notable for chronic lacunar infarcts severe white matter leukoaraiosis/mild to moderate cerebellar and cerebral volume loss
Hyponatremia
Hypertension
Anemia
Plan:
HD TTS schedule
renal diet and FR
Patient has [place] Medicaid and due to numerous social issues placement will be exceedingly difficult
dc planning
-
-
Date of Service: September 19, 2024
CC / HPI / ROS
-
Chief Complaint:
JESSICA vs ESRD-HD dependant
History of Present Illness:
tolerated HD 09/17
BP high stable
no fever
Review of Systems:
no CP or sob
feels well
Labs
-
Labs:
WBC 6.2 10^3/uL (4.8-10.8) 09/15/24 04:47
RBC 3.19 10^6/uL (4.70-6.10) L 09/15/24 04:47
Hgb 10.1 g/dL (13.0-18.0) L 09/15/24 04:47
Hct 28.6 % (39.0-52.0) L 09/15/24 04:47
Plt Count 216 10^3/uL (130-400) 09/15/24 04:47
Sodium 135 mmol/L (135-145) 09/17/24 10:38
Potassium 4.0 mmol/L (3.5-5.1) 09/17/24 10:38
Chloride 96 mmol/L (98-107) L 09/17/24 10:38
Carbon Dioxide 28 mmol/L (22-30) 09/17/24 10:38
BUN 26 mg/dl (9-20) H 09/17/24 10:38
Creatinine 4.2 mg/dL (0.7-1.3) H* 09/17/24 10:38
eGFR 15.69 09/17/24 10:38
Glucose 124 mg/dl (70-99) H 09/17/24 10:38
Calcium 9.2 mg/dl (8.4-10.2) 09/17/24 10:38
Phosphorus 4.4 mg/dl (2.5-4.5) 09/11/24 10:46
Albumin 3.8 g/dl (3.5-5.0) 09/11/24 10:46
Physical Exam
-
Vital Signs:
Vital Signs
Temp Pulse Resp BP Pulse Ox
98.4 F 66 18 169/89 97
09/19/24 08:03 09/19/24 08:39 09/19/24 08:03 09/19/24 08:39 09/19/24 08:03
Cardiovascular:: Regular rate and rhythm
Respiratory:: Bilateral: Coarse
Lung Excursion:: Normal
Abdomen:: Nontender and Soft
Bowel Sounds:: Normal
Extremity Edema:: None: Bilateral:
[2024-09-19 11:22] VITALS: BP 154/84
--- NOTE | 2024-09-19 13:39 | CHAP ---
Ethics consult received at 8:00 this morning that was placed by Hospitalist Ephraim Diana at 10:40 on Thursday (this printer is not monitored over the weekend). I consulted with Mr. Navarrete's new hospitalist this week, Cynthia Dinero. She and I agreed
that Mr. Navarrete's situation is more of a Case Management/Discharge issue than an ethical one. The ethics committee is available should any clinicians currently working with Mr. Navarrete would find it helpful. Will follow remotely as able.
[2024-09-19 15:00] VITALS: BP 154/86
[2024-09-19 23:40] VITALS: BP 134/73
[2024-09-20 05:47] VITALS: BMI 25.7
[2024-09-20 07:03] LABS: Hematocrit 29.5 % (39.0-52.0); Hemoglobin 10.3 g/dL (13.0-18.0)
[2024-09-20 07:30] VITALS: BP 157/81
[2024-09-20 07:54] LABS: Blood Urea Nitrogen 32 mg/dl (9-20); Carbon Dioxide 25 mmol/L (22-30); Chloride 94 mmol/L (98-107); Estimated Creatinine Clearance 17 ml/min; Glucose 90 mg/dl (70-99); Sodium 134 mmol/L (135-145); eGFR 13.04
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
[2024-09-20] MEDS: PROCARDIA XL (EXTENDED RELEASE) 30 MG PO (09:34)
[2024-09-20] MEDS: LOW STRENGTH ASPIRIN 81 MG PO (09:34)
[2024-09-20] MEDS: VITAMIN B1 100 MG PO ×2 (09:34→20:03)
[2024-09-20] MEDS: LIPITOR 40 MG PO (09:34)
[2024-09-20] MEDS: NEPHROCAP 1 CAPSULE PO (09:34)
[2024-09-20] MEDS: KEPPRA 500 MG PO ×2 (09:34→20:03)
[2024-09-20] MEDS: COREG 12.5 MG PO ×2 (09:34→20:04)
[2024-09-20] MEDS: PLAVIX 75 MG PO (09:35)
[2024-09-20] MEDS: HEPARIN 5000 UNITS SC ×2 (09:37→20:03)
[2024-09-20] MEDS: APRESOLINE 100 MG PO ×3 (09:38→21:57)
[2024-09-20] MEDS: HEPARIN 500 UNITS IV ×2 (14:49→14:50)
[2024-09-20] MEDS: RETACRIT 2000 UNITS IV (14:50)
[2024-09-20 15:15] VITALS: BP 142/75
--- NOTE | 2024-09-20 15:49 | W.PN.NEPH.HD ---
Assessment
-
Seen on HD. no complaints. VSS, access ok
await arrangements to get patient to [facility]
Progress Note - Hemodialysis
-
Date of Service: September 20, 2024
Duration: 30 minutes and 3 hours
Potassium Bath: 2
Calcium Bath: 2.5
Opti-Dialyzer: 160
Ultrafiltration: Other (2kg)
Blood Flow: 400
Dialysate Flow: 600
Heparin: 500x2
EPO: 2000 units
[2024-09-20] MEDS: HEPARIN 4000 UNITS INTRACATH (16:00)
--- NOTE | 2024-09-20 18:10 | PTCARENOTE ---
Pt received HD during shift, tolerated it well, VSS. Denies pain/discomfort. Call [facility] within reach.
[2024-09-20 23:42] VITALS: BP 143/89
[2024-09-21 05:10] VITALS: BMI 25.5
[2024-09-21 08:16] VITALS: BP 151/79
[2024-09-21] MEDS: KEPPRA 500 MG PO ×2 (08:18→20:18)
[2024-09-21] MEDS: COREG 12.5 MG PO ×2 (08:18→20:23)
[2024-09-21] MEDS: VITAMIN B1 100 MG PO ×2 (08:18→20:18)
[2024-09-21] MEDS: APRESOLINE 100 MG PO ×3 (08:20→21:52)
[2024-09-21] MEDS: LOW STRENGTH ASPIRIN 81 MG PO (08:20)
[2024-09-21] MEDS: PROCARDIA XL (EXTENDED RELEASE) 30 MG PO (08:20)
[2024-09-21] MEDS: LIPITOR 40 MG PO (08:20)
[2024-09-21] MEDS: NEPHROCAP 1 CAPSULE PO (08:20)
[2024-09-21] MEDS: PLAVIX 75 MG PO (08:20)
[2024-09-21] MEDS: HEPARIN 5000 UNITS SC ×2 (08:21→20:18)
[2024-09-21 08:27] VITALS: BP 151/79
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
--- NOTE | 2024-09-21 14:25 | CM ---
Addendum entered by Yancy Acevedo 09/21/24 16:13:
Per patient, [facility] did contact him and they did discuss getting a hotel.
Mr Navarrete agreeable to booking a hotel to stay at (prefers [facility])and said he would have transportation to dialysis. Possibly by his Dad, however he has been unable to contact him.
Mr Navarrete told this CM that he has a Credit card available with a $4000 limit that he will use for payment.
Patient told this CM that he also has an [facility] account.
CM call HD center again and verified that they would be able to start HD on Thursday but would need to be updated tomorrow if patient is for d/c and would require additional clinical information be faxed over.
HD nurse currently there was unable to answer as to how log it would take to arrange transportation for patient and CM will need to talk with SW in am.
Addendum entered by Yancy Acevedo 09/21/24 16:05:
Spoke with [facility] re poossibly providing transportation from hospital to hotel.
Per [facility] he josey reach out to Mr Navarrete today and speak with him, and will call CM back once he knows if he will be able to assist.
CM gave Mr Navarrete another list/phone numbers for hotels in the area of his dialysis center.
Addendum entered by Yancy Acevedo 09/21/24 14:42:
Spoke with [facility] where patient imrg-R-[id number]-Sat 4:10 pm, , address: [address] [place] [address] [address], [facility] [address].
They did not know of any hotels in the immediate area close to them.
Patient has medicaid of [place] which will pay for transportation, however limited to a 20 mile radius.
Original Note:
Spoke with patient bedside.
Patient stated he wants to get out of here.
Discussed discharge plan with patient and explained we cannot discharge him until there is a safe plan in place.
Patient agreeable to speak with watch case polisher about support systm he may have available.
Patient agreeable for CM to look at phone obtain phone numbers for Aly- son, [facility] and 2nd [facility]or [facility].
CM had previously contacted son Aly.
Aly- [phone]
Pastor Chaudhari [phone]
Pastor Burton [phone].
[2024-09-21 15:20] VITALS: BP 114/73
[2024-09-21 23:59] VITALS: BP 151/75
[2024-09-22 06:00] VITALS: BMI 25.6
[2024-09-22 07:23] VITALS: BP 161/97
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
[2024-09-22] MEDS: HEPARIN 5000 UNITS SC ×2 (08:30→20:35)
[2024-09-22] MEDS: NEPHROCAP 1 CAPSULE PO (08:31)
[2024-09-22] MEDS: PLAVIX 75 MG PO (08:31)
[2024-09-22] MEDS: LIPITOR 40 MG PO (08:31)
[2024-09-22] MEDS: VITAMIN B1 100 MG PO ×2 (08:31→20:35)
[2024-09-22] MEDS: KEPPRA 500 MG PO ×2 (08:32→20:35)
[2024-09-22] MEDS: COREG 12.5 MG PO ×2 (08:32→20:35)
[2024-09-22] MEDS: LOW STRENGTH ASPIRIN 81 MG PO (08:32)
[2024-09-22] MEDS: PROCARDIA XL (EXTENDED RELEASE) 30 MG PO (08:33)
[2024-09-22] MEDS: APRESOLINE 100 MG PO ×3 (09:17→20:35)
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
[2024-09-22] MEDS: HEPARIN 500 UNITS IV ×2 (12:48)
[2024-09-22] MEDS: RETACRIT 2000 UNITS IV (12:49)
[2024-09-22 13:02] LABS: Hematocrit 29.7 % (39.0-52.0); Hemoglobin 10.3 g/dL (13.0-18.0)
--- NOTE | 2024-09-22 13:07 | W.PN.NEPH.HD ---
Assessment
-
pt seen durign HD
vitals stable
limited UF, no wt gains noted
CVC functions well
d/c plan
Progress Note - Hemodialysis
-
Date of Service: September 22, 2024
Duration: 30 minutes and 3 hours
Potassium Bath: 3
Calcium Bath: 2.5
Opti-Dialyzer: 160
Ultrafiltration: Other (1-1.5kg)
Blood Flow: 400
Dialysate Flow: 600
Heparin: yesx2
EPO: 2000
[2024-09-22 13:42] LABS: Carbon Dioxide 25 mmol/L (22-30); Chloride 93 mmol/L (98-107); Potassium 4.2 mmol/L (3.5-5.1); Sodium 134 mmol/L (135-145)
--- NOTE | 2024-09-22 15:36 | CM ---
Reviewed the chart notes. Patient currently on HD. Per chart, many attempts to secure assistance from family and friends has failed. Unable to accurately account for the patient's financial stability to fund housing at this time. CM continues to
be available to patient/family and is monitoring medical plan for needs at discharge.
Plan: Discharge plans should be back to [place] and to his [facility] facility.
[2024-09-22 15:49] VITALS: BP 131/68
[2024-09-22] MEDS: HEPARIN 4000 UNITS INTRACATH (15:50)
[2024-09-22 23:25] VITALS: BP 163/88
[2024-09-23 06:00] VITALS: BMI 25.4
[2024-09-23 07:25] VITALS: BP 153/73
[2024-09-23] MEDS: PROCARDIA XL (EXTENDED RELEASE) 30 MG PO (08:25)
[2024-09-23] MEDS: NEPHROCAP 1 CAPSULE PO (08:25)
[2024-09-23] MEDS: COREG 12.5 MG PO ×2 (08:26→20:08)
[2024-09-23] MEDS: VITAMIN B1 100 MG PO ×2 (08:27→20:08)
[2024-09-23] MEDS: LIPITOR 40 MG PO (08:28)
[2024-09-23] MEDS: PLAVIX 75 MG PO (08:28)
[2024-09-23] MEDS: APRESOLINE 100 MG PO ×3 (08:28→21:54)
[2024-09-23] MEDS: LOW STRENGTH ASPIRIN 81 MG PO (08:28)
[2024-09-23] MEDS: HEPARIN 5000 UNITS SC ×2 (08:29→20:06)
[2024-09-23] MEDS: KEPPRA 500 MG PO ×2 (08:29→20:07)
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
--- NOTE | 2024-09-23 10:31 | W.PN.NEPH.PH ---
Today's Communication / Plan
-
HD tomorrow
Assessment/Plan
-
Impression:
ESRD MWF
Confusion with apparent history of recent CVA
CT scan notable for chronic lacunar infarcts severe white matter leukoaraiosis/mild to moderate cerebellar and cerebral volume loss
Hyponatremia
Hypertension
Anemia
Plan:
HD TTS schedule
renal diet and FR
dc planning
-
-
Date of Service: September 23, 2024
CC / HPI / ROS
-
Chief Complaint:
JESSICA vs ESRD-HD dependant
History of Present Illness:
tolerated HD yesterday
BP high stable
no fever
Review of Systems:
no CP or sob
feels well
Labs
-
Labs:
WBC 6.2 10^3/uL (4.8-10.8) 09/15/24 04:47
RBC 3.19 10^6/uL (4.70-6.10) L 09/15/24 04:47
Hgb 10.3 g/dL (13.0-18.0) L 09/22/24 12:54
Hct 29.7 % (39.0-52.0) L 09/22/24 12:54
Plt Count 216 10^3/uL (130-400) 09/15/24 04:47
Sodium 134 mmol/L (135-145) L 09/22/24 12:54
Potassium 4.2 mmol/L (3.5-5.1) 09/22/24 12:54
Chloride 93 mmol/L (98-107) L 09/22/24 12:54
Carbon Dioxide 25 mmol/L (22-30) 09/22/24 12:54
BUN 32 mg/dl (9-20) H 09/20/24 06:03
Creatinine 4.9 mg/dL (0.7-1.3) H* 09/20/24 06:03
eGFR 13.04 09/20/24 06:03
Glucose 90 mg/dl (70-99) 09/20/24 06:03
Calcium 9.0 mg/dl (8.4-10.2) 09/20/24 06:03
Phosphorus 4.4 mg/dl (2.5-4.5) 09/11/24 10:46
Albumin 3.8 g/dl (3.5-5.0) 09/11/24 10:46
Physical Exam
-
Vital Signs:
Vital Signs
Temp Pulse Resp BP Pulse Ox
98.2 F 63 16 153/73 98
09/23/24 07:25 09/23/24 08:28 09/23/24 07:25 09/23/24 08:28 09/23/24 07:25
Cardiovascular:: Regular rate and rhythm
Respiratory:: Bilateral: CTA
Lung Excursion:: Normal
Abdomen:: Nontender and Soft
Bowel Sounds:: Normal
Extremity Edema:: None: Bilateral:
--- NOTE | 2024-09-23 11:04 | CM ---
Patient seen bedside.
Per patient he stated he secured a Hotel at the [facility] in [place] on [address]
Per patient he has no transportation to get there.
Patient questioned if he had an manish for Uber or Lyft on his phone, he said he had Uber but has not used in a while, and could not locate manish on phone.
Patient asked where he attends HD and he said in [facility].
Patient asked how he would get from hotel to HD and responded he could get there, when asked how again he responded he could get there and said he would walk if he had to.
Patient asked when he is scheduled for HD and he stated he knows he goes but does not know his days or times.
Patient asked if he had transportation thru medicaid from home to HD and he said he did and if he had to he would have to go back to [facility] (where he was living) to get a ride.
TC to [facility], left for case management social worker Sherry to discuss transportation.
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 CM asked patient if he was currently working and he said not currently because he was here. 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
Patient asked if he collects social security or disability and he denied.
Patient stated he is feeing very frustrated with his situation.
Spoke with son Slime Navarrete, he wanted to discuss phone call that CM had with grandfather yesterday and requested that grandfather not be contacted. Slime is willing to assist with medical decision making only if needed, but no financial responsibility
or d/c assistance. Per Slime, his father is very narcissistic and manipulative. Per Slime his father does not have $400,000 in any savings, has no money and he doubts he would be able to secure a credit card. Patient has not worked in over 5 years.
Patient refuses to sign up for disability. The friend the Patient was living with is also in IT and tried to trow patient a few jobs, but they all ended disastrous and patient would get very upset.
Patient with no family/friend resources located at this time. Family does not want to be involved.
DO NOT CONTACT PATIENTS FATHER- Akshat Dexter
ONLY CONTACT SON SLIME or AIDA for medical decisions if needed. NOT financial, housing or transportation.
--- NOTE | 2024-09-23 11:50 | CM ---
Received call from the patient's regional administrative assistant media clerk Fede Farrar ([phone]). Per Fede, the worship is interested in assisting the patient with temporary housing. Explained that the patient receives HD on . Explained that the HD
facility would be able to assist with transportation to and from within a 10-15 mile radius. The media clerk is hopeful to be able to secure a motel room for Thursday and would coordinate transportation for the patient. The media clerk indicated he might be
the person who will provide transportation to the motel. CM contact information provided to the media clerk. He will contact CM with the motel name and address once a room is secured. Manager Star inquired where the patient could go in [place] for further
assistance. Explained that the patient would need to contact [facility] for assistance. CM continues to be available to patient/family and is monitoring medical plan for needs at discharge.
Plan: Discharge to a motel in [place] once a room is secured through the patient's worship.
--- NOTE | 2024-09-23 12:19 | CM ---
Spoke with Lani from [facility].
Updated re possible housing and d/c Thursday.
Patient will need transportation to HD until it can be arranged by LORI at [facility].
[2024-09-23 15:20] VITALS: BP 126/70
[2024-09-23 20:03] VITALS: BP 145/74
[2024-09-23 21:54] VITALS: BP 136/71
[2024-09-23 23:35] VITALS: BP 136/69
[2024-09-24 06:00] VITALS: BMI 25.8
[2024-09-24] MEDS: HEPARIN 500 UNITS IV ×2 (07:20→08:20)
[2024-09-24 07:34] VITALS: BP 176/92
[2024-09-24 07:57] LABS: Hematocrit 30.4 % (39.0-52.0); Hemoglobin 10.5 g/dL (13.0-18.0)
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
[2024-09-24 08:09] LABS: Carbon Dioxide 26 mmol/L (22-30); Chloride 94 mmol/L (98-107); Potassium 4.1 mmol/L (3.5-5.1); Sodium 135 mmol/L (135-145)
[2024-09-24] MEDS: RETACRIT 2000 UNITS IV (08:27)
--- NOTE | 2024-09-24 10:22 | W.PN.NEPH.HD ---
Assessment
-
Seen on HD. no complaints. VSS, access ok
Progress Note - Hemodialysis
-
Date of Service: September 24, 2024
Duration: 30 minutes and 3 hours
Potassium Bath: 2
Calcium Bath: 2.5
Opti-Dialyzer: 160
Ultrafiltration: Other (2kg)
Blood Flow: 400
Dialysate Flow: 600
Heparin: 500x2
EPO: 2000 units
[2024-09-24] MEDS: HEPARIN 3900 UNITS INTRACATH (10:52)
[2024-09-24 11:31] VITALS: BP 164/83
[2024-09-24] MEDS: APRESOLINE 100 MG PO ×3 (11:32→23:23)
[2024-09-24] MEDS: COREG 12.5 MG PO ×2 (11:32→20:42)
[2024-09-24] MEDS: NEPHROCAP 1 CAPSULE PO (11:33)
[2024-09-24] MEDS: KEPPRA 500 MG PO ×2 (11:33→20:42)
[2024-09-24] MEDS: PROCARDIA XL (EXTENDED RELEASE) 30 MG PO (11:33)
[2024-09-24] MEDS: HEPARIN SC (11:34)
[2024-09-24] MEDS: LOW STRENGTH ASPIRIN 81 MG PO (11:34)
[2024-09-24] MEDS: LIPITOR 40 MG PO (11:34)
[2024-09-24] MEDS: PLAVIX 75 MG PO (11:34)
[2024-09-24] MEDS: VITAMIN B1 100 MG PO ×2 (11:34→20:42)
--- NOTE | 2024-09-24 14:58 | PTCARENOTE ---
pt received HD during shift, tolerated it well, VS documented. Denies pain/discomfort. Call [facility] within reach. plan of care ongoing.
[2024-09-24 15:22] VITALS: BP 112/66
[2024-09-24] MEDS: SENOKOT-S 1 TABLET PO (15:57)
[2024-09-24] MEDS: HEPARIN 5000 UNITS SC (20:43)
[2024-09-24 23:22] VITALS: BP 142/82
[2024-09-25 05:58] VITALS: BMI 25.0
[2024-09-25 07:20] VITALS: BP 152/88
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
[2024-09-25] MEDS: VITAMIN B1 100 MG PO ×2 (08:31→20:24)
[2024-09-25] MEDS: KEPPRA 500 MG PO ×2 (08:31→20:24)
[2024-09-25] MEDS: LOW STRENGTH ASPIRIN 81 MG PO (08:31)
[2024-09-25] MEDS: PLAVIX 75 MG PO (08:31)
[2024-09-25] MEDS: APRESOLINE 100 MG PO ×3 (08:31→21:17)
[2024-09-25] MEDS: COREG 12.5 MG PO ×2 (08:31→20:24)
[2024-09-25] MEDS: LIPITOR 40 MG PO (08:31)
[2024-09-25] MEDS: PROCARDIA XL (EXTENDED RELEASE) 30 MG PO (08:31)
[2024-09-25] MEDS: NEPHROCAP 1 CAPSULE PO (08:31)
[2024-09-25] MEDS: HEPARIN SC (08:32)
--- NOTE | 2024-09-25 09:31 | W.PN.NEPH.PH ---
Today's Communication / Plan
-
HD thursday
Assessment/Plan
-
Impression:
ESRD MWF
Confusion with apparent history of recent CVA
CT scan notable for chronic lacunar infarcts severe white matter leukoaraiosis/mild to moderate cerebellar and cerebral volume loss
Hyponatremia
Hypertension
Anemia
Plan:
HD TTS schedule
renal diet and FR
dc planning, hopefully tomorrow
-
-
Date of Service: September 25, 2024
CC / HPI / ROS
-
Chief Complaint:
JESSICA vs ESRD-HD dependant
History of Present Illness:
tolerated HD thursday
BP high stable
no fever
Review of Systems:
no CP or sob
feels well
Labs
-
Labs:
WBC 6.2 10^3/uL (4.8-10.8) 09/15/24 04:47
RBC 3.19 10^6/uL (4.70-6.10) L 09/15/24 04:47
Hgb 10.5 g/dL (13.0-18.0) L 09/24/24 07:45
Hct 30.4 % (39.0-52.0) L 09/24/24 07:45
Plt Count 216 10^3/uL (130-400) 09/15/24 04:47
Sodium 135 mmol/L (135-145) 09/24/24 07:45
Potassium 4.1 mmol/L (3.5-5.1) 09/24/24 07:45
Chloride 94 mmol/L (98-107) L 09/24/24 07:45
Carbon Dioxide 26 mmol/L (22-30) 09/24/24 07:45
BUN 32 mg/dl (9-20) H 09/20/24 06:03
Creatinine 4.9 mg/dL (0.7-1.3) H* 09/20/24 06:03
eGFR 13.04 09/20/24 06:03
Glucose 90 mg/dl (70-99) 09/20/24 06:03
Calcium 9.0 mg/dl (8.4-10.2) 09/20/24 06:03
Phosphorus 4.4 mg/dl (2.5-4.5) 09/11/24 10:46
Albumin 3.8 g/dl (3.5-5.0) 09/11/24 10:46
Physical Exam
-
Vital Signs:
Vital Signs
Temp Pulse Resp BP Pulse Ox
97.5 F 62 18 152/88 98
09/25/24 07:20 09/25/24 07:20 09/25/24 07:20 09/25/24 08:31 09/25/24 07:20
Cardiovascular:: Regular rate and rhythm
Respiratory:: Bilateral: Coarse
Lung Excursion:: Normal
Abdomen:: Nontender and Soft
Bowel Sounds:: Normal
Extremity Edema:: None: Bilateral:
--- NOTE | 2024-09-25 14:01 | PTCARENOTE ---
pt with okay to shower order this afternoon per MD. pt walking unit independently at this time with no assistance.
[2024-09-25 15:27] VITALS: BP 131/71
[2024-09-25 19:48] VITALS: BP 147/73
[2024-09-25 23:05] VITALS: BP 144/80
[2024-09-26 04:59] VITALS: BP 194/88
--- NOTE | 2024-09-26 05:00 | PTCARENOTE ---
Pt had an unwitnessed fall. PCT found Mr. Navarrete on floor. Pt states that he tripped on his way back to the bathroom; he denies hitting head and denies pain. Pt assessed. There are no visible injuries. House EMD SPECIAL EDUCATION TEACHER and tower supervisor notified.
[2024-09-26 05:22] VITALS: BP 171/86
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
[2024-09-26 05:59] VITALS: BMI 25.4
[2024-09-26 08:10] VITALS: BP 155/84
[2024-09-26] MEDS: VITAMIN B1 100 MG PO ×2 (08:11→20:18)
[2024-09-26] MEDS: LIPITOR 40 MG PO (08:11)
[2024-09-26] MEDS: LOW STRENGTH ASPIRIN 81 MG PO (08:11)
[2024-09-26] MEDS: NEPHROCAP 1 CAPSULE PO (08:11)
[2024-09-26] MEDS: PLAVIX 75 MG PO (08:11)
[2024-09-26] MEDS: APRESOLINE 100 MG PO ×3 (08:11→21:33)
[2024-09-26] MEDS: KEPPRA 500 MG PO ×2 (08:11→20:18)
[2024-09-26] MEDS: PROCARDIA XL (EXTENDED RELEASE) 30 MG PO (08:11)
[2024-09-26] MEDS: COREG 12.5 MG PO ×2 (08:11→20:18)
--- NOTE | 2024-09-26 08:49 | W.PN.NEPH.PH ---
Today's Communication / Plan
-
Dialysis tomorrow
Assessment/Plan
-
Impression:
ESRD MWF
Confusion with apparent history of recent CVA
CT scan notable for chronic lacunar infarcts severe white matter leukoaraiosis/mild to moderate cerebellar and cerebral volume loss
Hyponatremia
Hypertension
Anemia
Plan:
HD TTS schedule, Hd tomorrow, orders provided
renal diet and FR
dc planning, hopefully tomorrow
-
-
Date of Service: September 26, 2024
CC / HPI / ROS
-
Chief Complaint:
JESSICA vs ESRD-HD dependant
History of Present Illness:
tolerated HD thursday
BP high stable
no fever
Review of Systems:
no CP or sob
feels well
Labs
-
Labs:
WBC 6.2 10^3/uL (4.8-10.8) 09/15/24 04:47
RBC 3.19 10^6/uL (4.70-6.10) L 09/15/24 04:47
Hgb 10.5 g/dL (13.0-18.0) L 09/24/24 07:45
Hct 30.4 % (39.0-52.0) L 09/24/24 07:45
Plt Count 216 10^3/uL (130-400) 09/15/24 04:47
Sodium 135 mmol/L (135-145) 09/24/24 07:45
Potassium 4.1 mmol/L (3.5-5.1) 09/24/24 07:45
Chloride 94 mmol/L (98-107) L 09/24/24 07:45
Carbon Dioxide 26 mmol/L (22-30) 09/24/24 07:45
BUN 32 mg/dl (9-20) H 09/20/24 06:03
Creatinine 4.9 mg/dL (0.7-1.3) H* 09/20/24 06:03
eGFR 13.04 09/20/24 06:03
Glucose 90 mg/dl (70-99) 09/20/24 06:03
Calcium 9.0 mg/dl (8.4-10.2) 09/20/24 06:03
Phosphorus 4.4 mg/dl (2.5-4.5) 09/11/24 10:46
Albumin 3.8 g/dl (3.5-5.0) 09/11/24 10:46
Physical Exam
-
Vital Signs:
Vital Signs
Temp Pulse Resp BP Pulse Ox
98.1 F 64 17 155/84 97
09/26/24 08:10 09/26/24 08:10 09/26/24 08:10 09/26/24 08:11 09/26/24 08:10
Cardiovascular:: Regular rate and rhythm
Respiratory:: Bilateral: Coarse
Lung Excursion:: Normal
Abdomen:: Nontender and Soft
Bowel Sounds:: Normal
Extremity Edema:: None: Bilateral:
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
--- NOTE | 2024-09-26 11:16 | CM ---
Addendum entered by Elaine Dwyer RN 09/26/24 14:21:
Unfortunately the ventilation equipment tender can only help for a few days and when he asked the patient what his correction plans for residency is he said he plans to live in the [facility]. Peggyr no comfortable taking patient out of hospital and providing a hotel room for
a few days to have the patient ultimately end up homeless. attempted to reach out the the patient's father, no response and will be reaching out to the patient's son Rudy for possible assistance.
Original Note:
MONICA spoke with pastor Michael, ([phone]). He is attempting to secure a room at the [facility], [facility] [address] He also is attempting to secure transportation for the patient until [facility] can arrange the
transportation. MONICA spoke with Devi at [facility], she confirmed that they will be able to arrange transportation once the patient has a room at at [facility] and she will need to have a room number as well. Waiting on the ventilation equipment tender to finalize the
living arrangement to proceed with discharge. The paster will be providing transportation for the patient to [facility] and to [facility] for assistance. MONICA continues to be available to patient/family and is monitoring medical plan
for needs at discharge.
Plan: Discharge to [facility] room when arranged.
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
[2024-09-26 15:46] VITALS: BP 165/79
[2024-09-26 18:05] VITALS: BP 147/76
[2024-09-26 22:58] VITALS: BP 146/76
[2024-09-27 06:00] VITALS: BMI 25.8
[2024-09-27 07:25] VITALS: BP 176/91
[2024-09-27] MEDS: VITAMIN B1 100 MG PO ×2 (08:25→19:46)
[2024-09-27] MEDS: NEPHROCAP 1 CAPSULE PO (08:25)
[2024-09-27] MEDS: PLAVIX 75 MG PO (08:25)
[2024-09-27] MEDS: LIPITOR 40 MG PO (08:25)
[2024-09-27] MEDS: LOW STRENGTH ASPIRIN 81 MG PO (08:26)
[2024-09-27] MEDS: PROCARDIA XL (EXTENDED RELEASE) 30 MG PO (08:26)
[2024-09-27] MEDS: KEPPRA 500 MG PO ×2 (08:26→19:46)
[2024-09-27] MEDS: APRESOLINE 100 MG PO ×3 (08:27→22:00)
[2024-09-27] MEDS: COREG 12.5 MG PO ×2 (08:27→19:46)
--- NOTE | 2024-09-27 09:42 | CM ---
Reviewed the chart notes and spoke with the patient at the bedside. Per consult note from yesterday patient was willing to go to SNF and receive HD. CM attempted to discuss SNFs in the patient's area. Patient replied 'I would rather then go
to a NH. NHs are for old people'. CM discussed with the patient that if he is homeless the HD center can not accept him back. He needs an address. Patient replied 'I'm aware'. Asked the patient what his plan is. He replied 'I'm getting an
apartment in [place]'. Per patient, the name of apartments is [address]. They acutally are located in [facility] [place]. These apartments are 40+ miles from his HD facility. Patient has not filled out any paperwork. Patient claims he could
apply if he had his things from previous address. CM asked the patient if anyone (security professionals, friend) could retrieve his personal belongings from the home and bring to him here. Patient replied 'I have no idea'. Patient ambulatory in room and
hallway without any assistive devices. CM continues to be available to patient/family and is monitoring medical plan for needs at discharge.
Plan: Discharge to [place] and continue with HD at [place] once a room/apartment is able to be secured for the patient.
[2024-09-27 12:04] VITALS: BP 124/59
[2024-09-27] MEDS: HEPARIN 500 UNITS IV ×2 (12:35→13:35)
[2024-09-27 12:55] LABS: Hematocrit 27.3 % (39.0-52.0); Hemoglobin 9.7 g/dL (13.0-18.0)
[2024-09-27 13:09] LABS: Carbon Dioxide 25 mmol/L (22-30); Chloride 93 mmol/L (98-107); Sodium 131 mmol/L (135-145)
[2024-09-27] MEDS: RETACRIT 2000 UNITS IV (13:47)
--- NOTE | 2024-09-27 14:15 | W.PN.NEPH.HD ---
Assessment
-
Patient seen on HD
sbp stable for u/f
Progress Note - Hemodialysis
-
Date of Service: September 27, 2024
Duration: 30 minutes and 3 hours
Potassium Bath: 3
Calcium Bath: 2.5
Ultrafiltration: Other (3kg)
Blood Flow: 400
Heparin: 500 times two
EPO: 2000
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
[2024-09-27 15:40] VITALS: BP 126/69
[2024-09-27] MEDS: HEPARIN 3900 UNITS INTRACATH (15:48)
[2024-09-27 23:30] VITALS: BP 131/75
[2024-09-28 06:00] VITALS: BMI 25.3
[2024-09-28 07:35] VITALS: BP 162/88
[2024-09-28] MEDS: LIPITOR 40 MG PO (09:08)
[2024-09-28] MEDS: VITAMIN B1 100 MG PO ×2 (09:08→20:39)
[2024-09-28] MEDS: COREG 12.5 MG PO ×2 (09:08→20:39)
[2024-09-28] MEDS: PLAVIX 75 MG PO (09:08)
[2024-09-28] MEDS: LOW STRENGTH ASPIRIN 81 MG PO (09:08)
[2024-09-28] MEDS: APRESOLINE 100 MG PO ×3 (09:08→22:17)
[2024-09-28] MEDS: KEPPRA 500 MG PO ×2 (09:08→20:39)
[2024-09-28] MEDS: NEPHROCAP 1 CAPSULE PO (09:08)
[2024-09-28] MEDS: PROCARDIA XL (EXTENDED RELEASE) 30 MG PO (09:09)
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
[2024-09-28 15:30] VITALS: BP 143/74
--- NOTE | 2024-09-28 15:51 | CM ---
Reviewed the chart notes. Message left with the [facility] ([phone], opt#2) to inquire about possibility of a bed being available and procedure to obtain said bed. CM continues to be available to patient/family and is
monitoring medical plan for needs at discharge.
Plan: Discharge plans will depend on finding a place for the patient to reside and receive HD.
--- NOTE | 2024-09-28 16:27 | CM ---
Patient seen bedside.
Discussed plan for d/c.
Patient stated he would be going to his friend Elmer, CM informed patient his friend would be unable to take him back.
Agreeable to skilled rehab.
Multiple referrals sent.
TC to Medicaid will attempt again in am.
[2024-09-28 23:35] VITALS: BP 144/82
[2024-09-29 06:00] VITALS: BMI 25.7
[2024-09-29 07:30] VITALS: BP 168/82
[2024-09-29] MEDS: PLAVIX 75 MG PO (08:17)
[2024-09-29] MEDS: VITAMIN B1 100 MG PO ×2 (08:17→20:18)
[2024-09-29] MEDS: PROCARDIA XL (EXTENDED RELEASE) 30 MG PO (08:18)
[2024-09-29] MEDS: COREG 12.5 MG PO ×2 (08:18→20:18)
[2024-09-29] MEDS: APRESOLINE 100 MG PO ×3 (08:18→22:55)
[2024-09-29] MEDS: KEPPRA 500 MG PO ×2 (08:18→20:17)
[2024-09-29] MEDS: LOW STRENGTH ASPIRIN 81 MG PO (08:19)
[2024-09-29] MEDS: NEPHROCAP 1 CAPSULE PO (08:19)
[2024-09-29] MEDS: LIPITOR 40 MG PO (08:19)
[2024-09-29 08:54] LABS: Blood Urea Nitrogen 31 mg/dl (9-20); Calcium 9.2 mg/dl (8.4-10.2); Carbon Dioxide 25 mmol/L (22-30); Chloride 92 mmol/L (98-107); Estimated Creatinine Clearance 20 ml/min; Glucose 111 mg/dl (70-99); Potassium 4.6 mmol/L (3.5-5.1); Sodium 132 mmol/L (135-145); eGFR 15.25
--- NOTE | 2024-09-29 09:31 | CM ---
Addendum entered by Yancy Acevedo 09/29/24 15:05:
Per Millie, no bed at [facility] but she does have a bed at [facility], updated clinicals and flow sheets via [facility].
Millie aware patient may be LTC, homeless and requires HD.
[facility] HD [facility]
Provided Millie with patients Medicaid number.
Per Millie the facility will completed the CT PASRR.
Await final acceptance, will need to discuss with patient.
If patient accepted, transportation will need to be provided.
Addendum entered by Yancy Acevedo 09/29/24 13:25:
Reached out to [facility] [phone] and left VM.
Reached out to Millie from [facility] per [facility] request- [phone], await TCB.
Reached out to all interested facilities in [facility], provided additional information, await response.
Addendum entered by Yancy Acevedo 09/29/24 11:30:
Spoke with Trina from [place] [facility] and was refereed to
[facility] at [phone]
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
Trina referred me to [facility] [phone], spoke with Ashlyn Pruitt who was able to provide me with patients medicaid number [id number].
Ashlyn transferred me to [facility] from TSS servies and stated patient would need to be present to apple or give verbal approval. Once information obtained, after approx 5 days a goodwill representative usually does an onsite visit to assess patient. Whol
process takes approx 30 days.
Original Note:
TC to [place] [facility] option 6, left VM form Trina Gonzalez re services available. Await TCB.
[2024-09-29 11:00] VITALS: BP 142/68
[2024-09-29] MEDS: HEPARIN 500 UNITS IV ×2 (12:45→13:45)
--- NOTE | 2024-09-29 13:44 | W.PN.NEPH.HD ---
Assessment
-
Seen on HD. no complaints. VSS< access ok. dc planning
Progress Note - Hemodialysis
-
Date of Service: September 29, 2024
Duration: 30 minutes and 3 hours
Potassium Bath: 2
Calcium Bath: 2.5
Opti-Dialyzer: 160
Ultrafiltration: Other (kg)
Blood Flow: 400
Dialysate Flow: 600
Heparin: 500x2
EPO: 2000 units
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
[2024-09-29] MEDS: RETACRIT 2000 UNITS IV (15:19)
[2024-09-29 15:30] VITALS: BP 122/67
[2024-09-29] MEDS: HEPARIN 3900 UNITS INTRACATH (16:12)
[2024-09-29 16:59] VITALS: BP 142/71
[2024-09-29 23:10] VITALS: BP 143/76
[2024-09-30 05:24] VITALS: BMI 25.7
[2024-09-30 07:28] VITALS: BP 151/83
[2024-09-30] MEDS: VITAMIN B1 100 MG PO (07:51)
[2024-09-30] MEDS: COREG 12.5 MG PO (07:51)
[2024-09-30] MEDS: LOW STRENGTH ASPIRIN 81 MG PO (07:51)
[2024-09-30] MEDS: APRESOLINE 100 MG PO (07:51)
[2024-09-30] MEDS: NEPHROCAP 1 CAPSULE PO (07:51)
[2024-09-30] MEDS: PLAVIX 75 MG PO (07:51)
[2024-09-30] MEDS: PROCARDIA XL (EXTENDED RELEASE) 30 MG PO (07:51)
[2024-09-30] MEDS: LIPITOR 40 MG PO (07:52)
[2024-09-30] MEDS: KEPPRA 500 MG PO (07:52)
--- NOTE | 2024-09-30 09:25 | CM ---
Addendum entered by Yancy Acevedo 09/30/24 17:09:
Updated patients son Dejon that he was d/c to [facility].
Addendum entered by Yancy Acevedo 09/30/24 14:08:
[facility]
Alternate fax# [phone]
Addendum entered by Yancy Acevedo 09/30/24 12:16:
Per Millie Liaison for [facility] and Shanika- facility admin-Facility able to accept without actual auth number, as long as clinicals sent to [facility].
Clinicals emailed to [email or web address] with email response it was received.
Per Juan Munoz, they are able to resume HD tomorrow, need to arrive at 3:45, Millie and Shanika aware and will arrange transport.
Updated clinicals sent to [facility].
Jaja Joseph
Report# [phone]

Caleb Munoz

ambulance transport 1 pm, forms completed
Addendum entered by Yancy Acevedo 09/30/24 11:17:
CM and Director of spoke with patient bedside and explained bed available at [facility] in [place].
Explained to patient he is not appropriate for skilled rehab sine he is up ambulating independently.
Explained to patient he would need to go to the facility under mcfp care and CM will attempt to secure a mcfp authorization thru his [employer] medicaid of [place].
Patient verbalized understanding.
[facility] NPI# [id number] Tax ID# [id number]
Spoke with Mahogany Melendrez at [employer] for a m[facility]p auth.
P# [phone]
policy# [id number]
[facility] need [facility].
Case started for mcfp auth, clinicals to be faxed to [email or web address]
provide name, ID# and clinicals
Per Mahogany no pended auth number available. (they do not give one)
Text to Millie, she does want [facility] auth. awaiting verification she can accept today without the acutal pending authorization.
Addendum entered by Yancy Acevedo 09/30/24 10:12:
[facility] medicaid member# [id number] [phone]
Policy# [id number]

Facility requesting mcfp auth be initiated prior to transfer, will take with a pending authorization.
Will discuss with patient.
Addendum entered by Yancy Acevedo 09/30/24 09:33:
Currently, patient has been declined in [facility]. await TCB from Millie.
Original Note:
Spoke with Devi from [facility] in [place] p#[phone], aware of tentative d/c today.
Per Devi scheduled HD days .
Patient would need to arrive at their facility on Thursday at 3:45 pm for 4:00 pm HD time.
Please fax updated clinicals and HD notes to
Per Devi once patient is reestablished they will change his facility to one closer to [facility].
Spoke with Millie from [facility], await call back if patient can be accepted today nd if any other information is required.
Millie aware of HD schedule at [facility] and is verifying transportation.
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
--- NOTE | 2024-09-30 12:28 | W.DS.TRANS ---
DC Summary - [employer]
-
Discharge Instructions:
Discharge Diagnosis/Procedures confusion, likely dementia, recent hemorrhagic
CVA in July. ESRD on HD
Diet Other diet
Additional Diets vegetarian
Activity As tolerated
Instructions:
Stand-Alone Forms:
Changes to Home Medications: No
Discharge Medications:
DC Medications w/original date entered in [employer]
Nifedical XL 30 mg PO DAILY 09/13/24
aspirin 81 mg tablet 81 mg PO DAILY 09/13/24
atorvastatin 40 mg PO DAILY 09/13/24
carvedilol 12.5 mg tablet (Coreg) 12.5 mg PO BID 09/13/24
clopidogrel 75 mg tablet (Plavix) 75 mg PO DAILY 09/13/24
darbepoetin christina in polysorbat 60 mcg/0.3 mL in polysorbate injection syringe (Aranesp) 60 mcg SC QWEEK 09/13/24
hydralazine 100 mg tablet 100 mg PO TID 09/13/24
levetiracetam 500 mg tablet (Keppra) 500 mg PO Q12H 09/13/24
thiamine HCl (vitamin B1) 100 mg tablet 100 mg PO BID #100 tabs 09/30/24
vitamin B complex and vitamin C no.20-folic acid 1 mg capsule (Renal Caps) 1 cap PO DAILY #100 caps 09/30/24
Home Medication Changes
Pending Results: No
Total time spent discharging patient (in min): 41
[2024-09-30 13:08] VITALS: BP 130/68
--- NOTE | 2024-09-30 13:13 | PTCARENOTE ---
Patient discharged to [facility], transported by Acute Care, report given to Kae by this RN. No IV or tele pack on patient, R chest wall HD cath in place for outpatient dialysis TTS. Patient's belongings gathered in room prior to transport.
Patient holding cell phone on discharge per patient request. Belonging bags and jacket handed to transport team.
--- NOTE | 2024-10-03 13:07 | CM ---
Received call from the patient's plastics and composites inspector, whom CM has spoke with prior. He was calling to inquire where the patient was discharged to on Thursday. Information provided.
== END 2024-09-30 13:17 | DRG 70 ==
LOC: 2 NORTH 14:06
PROVIDERS: Internal Medicine; Registered Nurse; Specialist; ADMITTING PHYSICIAN Hospitalist; ATTENDING PHYSICIAN Internal Medicine; CONSULT PHYSICIAN Psychiatry & Neurology Neurology; CONSULT PHYSICIAN Psychiatry & Neurology Psychiatry; CONSULT PHYSICIAN Specialist; EMERGENCY PHYSICIAN Student in an Organized Health Care Education/Training Program; OTHER PHYSICIAN Psychiatry & Neurology Psychiatry
PROC: 5A1D70Z Performance of Urinary Filtration, Intermittent, Less than 6 Hours Per Day (ICD-10-PCS; 2024-09-12)
DX: G93.41 Metabolic encephalopathy (principal); N18.6 End stage renal disease; Q21.10 Atrial septal defect, unspecified; E87.1 Hypo-osmolality and hyponatremia; I12.0 Hypertensive chronic kidney disease with stage 5 chronic kidney disease or end stage renal disease; I67.4 Hypertensive encephalopathy; I67.81 Acute cerebrovascular insufficiency; D63.1 Anemia in chronic kidney disease; Z99.2 Dependence on renal dialysis; Z86.73 Personal history of transient ischemic attack (TIA), and cerebral infarction without residual deficits; I16.0 Hypertensive urgency; G40.209 Localization-related (focal) (partial) symptomatic epilepsy and epileptic syndromes with complex partial seizures, not intractable, without status epilepticus; Z79.02 Long term (current) use of antithrombotics/antiplatelets
CPT/HCPCS: 70450; 71046; 74018; 80048; 80051; 80053; 80306; 81003; 81015; 82077; 82140; 82607; 83735; 84100; 84443; 85014; 85018; 85025; 85027; 85610; 86704; 86706; 86803; 87070; 87340; 93005; 95816; 97162; 97166; 99285; G0257; P9047; Q5106